=== PATIENT | male | born 1935 | race Caucasian/White ===

== ENCOUNTER 2020-03-23 07:06 | Outpatient (REF) | payer MEDICARE, OTHER, SELFPAY ==
[2020-03-23 11:10] LABS: MANUAL DIFF FLAG NO
[2020-03-23 11:26] LABS: Estimated Average Glucose 131 mg/dL; Hemoglobin A1c % 6.2 %
[2020-03-23 11:29] LABS: Alanine Aminotransferase 28 U/L (0-40); Albumin Level 4.4 g/dL (3.5-5.0); Alkaline Phosphatase 88 U/L (39-117); Anion Gap 13 (12-20); Aspartate Amino Transferase 25 U/L (5-37); Bilirubin Total 0.6 mg/dL (0.0-1.0); Blood Urea Nitrogen 14 mg/dL (9-16); Calcium 9.5 mg/dL (8.4-10.2); Carbon Dioxide 28 mmol/L (22-29); Chloride 104 mmol/L (96-108); Cholesterol 220 mg/dL; Estimated Glomerular Filt Rate 60; Glucose Fasting 133 mg/dL (60-99); HDL Cholesterol 53 mg/dL; LDL Cholesterol Calculated 145 mg/dl; Potassium 5.3 mmol/l (3.3-5.1); Sodium 140 mmol/L (135-145); Triglycerides 113 mg/dL
[2020-03-23 11:34] LABS: Basophils Absolute Auto 0.1 X10*3/uL (0.0-0.2); Eosinophils Absolute Auto 0.1 X10*3/uL (0.0-0.4); Eosinophils Percent Auto 1.5 % (0-4); Hematocrit 48.8 % (42-52); Hemoglobin 15.5 g/dl (14.0-18.0); Imm Gran Abs Auto 0.03 X10*3/uL (0.00-0.03); Imm Gran Pct Auto 0.4 % (0.0-0.4); Lymphocytes Absolute Auto 1.2 X10*3/uL (1.2-4.9); Lymphocytes Percent Auto 14.4 % (20-40); Mean Corpuscular HGB Conc 31.8 g/dl (31.0-36.0); Mean Corpuscular Hemoglobin 29.2 pg (27.0-33.0); Mean Corpuscular Volume 92.1 fL (80-98); Mean Platelet Volume 12.6 fL (9.4-12.4); Monocytes Absolute Auto 0.5 X10*3/uL (0.1-1.2); Monocytes Percent Auto 5.6 % (2-11); Neutrophils Absolute Auto 6.3 X10*3/uL (2.0-8.3); Neutrophils Percent Auto 77.1 % (45-73); Platelet Count 227 X10*3/uL (160-400); White Blood Count 8.2 X10*3/uL (4.8-10.8)
[2020-03-23 11:43] LABS: Glucose Urine UA NEG (NEG); Leukocyte Esterase Urine NEG (NEG); Nitrite Urine NEG (NEG); Urine Blood NEG (NEG); Urine Ketones NEG (NEG); Urine Protein NEG (NEG-TRACE)
[2020-03-23 11:50] LABS: TSH reflex Free T4 3.06 mIU/mL (0.32-4.0)
[2020-03-23 11:50] LABS: Appearance Urine CLEAR; Color Urine YELLOW
[2020-03-23 12:21] LABS: Creatinine Urine 95.33 mg/dL; Microalbum/Creatinine Ratio Ur 12.5 ug/mg cr
[2020-03-23 12:32] LABS: RBC Urine 0 /HPF (0); WBC Urine 0-2 /HPF (0-4)
== END 2020-03-23 07:07 | disposition home or self-care (01) ==
LOC: HO.HMGCLDS 07:06
PROVIDERS: PCP Internal Medicine; Visit Provider Internal Medicine
DX: E78.00 Pure hypercholesterolemia, unspecified (principal); E11.9 Type 2 diabetes mellitus without complications; E66.3 Overweight; I10 Essential (primary) hypertension
CPT/HCPCS: 36415; 80053; 80061; 81001; 81003; 82043; 83036; 84443; 85025

== ENCOUNTER 2020-08-10 10:25 | Outpatient (REF) | payer MEDICARE, MEDICAID, SELFPAY ==
[2020-08-10 12:05] LABS: MANUAL DIFF FLAG NO
[2020-08-10 12:13] LABS: Basophils Absolute Auto 0.1 X10*3/uL (0.0-0.2); Basophils Percent Auto 0.4 % (0-2); Eosinophils Absolute Auto 0.1 X10*3/uL (0.0-0.4); Eosinophils Percent Auto 0.9 % (0-4); Hematocrit 45.1 % (42-52); Hemoglobin 15.1 g/dl (14.0-18.0); Imm Gran Abs Auto 0.06 X10*3/uL (0.00-0.03); Imm Gran Pct Auto 0.5 % (0.0-0.4); Lymphocytes Absolute Auto 1.4 X10*3/uL (1.2-4.9); Lymphocytes Percent Auto 12.5 % (20-40); Mean Corpuscular HGB Conc 33.5 g/dl (31.0-36.0); Mean Corpuscular Hemoglobin 30.1 pg (27.0-33.0); Mean Platelet Volume 11.7 fL (9.4-12.4); Monocytes Absolute Auto 0.7 X10*3/uL (0.1-1.2); Monocytes Percent Auto 5.7 % (2-11); Neutrophils Absolute Auto 9.2 X10*3/uL (2.0-8.3); Platelet Count 265 X10*3/uL (160-400); Red Blood Count 5.01 X10*6/uL (4.60-5.80); Red Cell Distribution Width 14.6 % (11.0-16.0); White Blood Count 11.5 X10*3/uL (4.8-10.8)
[2020-08-10 12:43] LABS: Alanine Aminotransferase 16 U/L (0-40); Albumin Level 4.4 g/dL (3.5-5.0); Alkaline Phosphatase 82 U/L (39-117); Anion Gap 14 (12-20); Aspartate Amino Transferase 16 U/L (5-37); Bilirubin Total 0.8 mg/dL (0.0-1.0); Blood Urea Nitrogen 16 mg/dL (9-16); C Reactive Protein 0.56 mg/dL (< or = 0.50); Calcium 9.4 mg/dL (8.4-10.2); Carbon Dioxide 29 mmol/L (22-29); Chloride 103 mmol/L (96-108); Estimated Glomerular Filt Rate > 60; Glucose Random 107 mg/dL (60-115); Potassium 4.7 mmol/L (3.3-5.1); Sodium 141 mmol/L (135-145); Total Protein 6.9 g/dL (6.5-8.0)
[2020-08-10 13:24] LABS: Erythrocyte Sedimentation Rate 7 MM/HR (0-15)
== END 2020-08-10 10:26 | disposition home or self-care (01) ==
LOC: HO.LAB 10:25
PROVIDERS: PCP Internal Medicine; Visit Provider Student in an Organized Health Care Education/Training Program
DX: M05.9 Rheumatoid arthritis with rheumatoid factor, unspecified (principal); I10 Essential (primary) hypertension; Z87.891 Personal history of nicotine dependence; Z88.6 Allergy status to analgesic agent; Z79.82 Long term (current) use of aspirin; Z79.899 Other long term (current) drug therapy
CPT/HCPCS: 36415; 80053; 85025; 85652; 86140; 99212

== ENCOUNTER → 2020-11-12 14:08 | Outpatient (BNVA) | payer MEDICARE, MEDICAID, SELFPAY | PROVIDERS: PCP Internal Medicine; Visit Provider Student in an Organized Health Care Education/Training Program | DX: M05.9 Rheumatoid arthritis with rheumatoid factor, unspecified (principal); Z79.899 Other long term (current) drug therapy | CPT/HCPCS: 99212 ==

== ENCOUNTER 2020-11-15 09:39 | Outpatient (REF) | payer MEDICARE, MEDICAID, SELFPAY ==
[2020-11-15 11:29] LABS: MANUAL DIFF FLAG NO
[2020-11-15 11:38] LABS: Basophils Absolute Auto 0.1 X10*3/uL (0.0-0.2); Basophils Percent Auto 0.7 % (0-2); Eosinophils Absolute Auto 0.1 X10*3/uL (0.0-0.4); Eosinophils Percent Auto 1.3 % (0-4); Hematocrit 44.9 % (42-52); Hemoglobin 14.5 g/dl (14.0-18.0); Imm Gran Abs Auto 0.09 X10*3/uL (0.00-0.03); Imm Gran Pct Auto 0.8 % (0.0-0.4); Lymphocytes Absolute Auto 1.5 X10*3/uL (1.2-4.9); Lymphocytes Percent Auto 13.5 % (20-40); Mean Corpuscular HGB Conc 32.3 g/dl (31.0-36.0); Mean Corpuscular Hemoglobin 29.8 pg (27.0-33.0); Mean Corpuscular Volume 92.4 fL (80-98); Mean Platelet Volume 12.1 fL (9.4-12.4); Monocytes Absolute Auto 0.7 X10*3/uL (0.1-1.2); Monocytes Percent Auto 6.9 % (2-11); Neutrophils Absolute Auto 8.2 X10*3/uL (2.0-8.3); Neutrophils Percent Auto 76.8 % (45-73); Platelet Count 255 X10*3/uL (160-400); Red Blood Count 4.86 X10*6/uL (4.60-5.80); Red Cell Distribution Width 15.1 % (11.0-16.0); White Blood Count 10.7 X10*3/uL (4.8-10.8)
[2020-11-15 12:01] LABS: Alanine Aminotransferase 15 U/L (0-40); Albumin Level 4.2 g/dL (3.5-5.0); Alkaline Phosphatase 83 U/L (39-117); Anion Gap 13 (12-20); Aspartate Amino Transferase 16 U/L (5-37); Bilirubin Total 0.8 mg/dL (0.0-1.0); Blood Urea Nitrogen 16 mg/dL (9-16); C Reactive Protein 0.73 mg/dL (< or = 0.50); Calcium 9.5 mg/dL (8.4-10.2); Carbon Dioxide 29 mmol/L (22-29); Chloride 104 mmol/L (96-108); Estimated Glomerular Filt Rate 56; Glucose Random 188 mg/dL (60-115); Potassium 4.5 mmol/L (3.3-5.1); Sodium 141 mmol/L (135-145); Total Protein 6.7 g/dL (6.5-8.0)
[2020-11-15 12:15] LABS: Erythrocyte Sedimentation Rate 7 MM/HR (0-15)
== END 2020-11-15 09:40 | disposition home or self-care (01) ==
LOC: HO.HMGCLDS 09:39
PROVIDERS: Visit Provider Student in an Organized Health Care Education/Training Program
DX: M05.9 Rheumatoid arthritis with rheumatoid factor, unspecified (principal)
CPT/HCPCS: 36415; 80053; 85025; 85652; 86140

== ENCOUNTER 2020-12-21 07:12 | Outpatient (REF) | payer MEDICARE, MEDICAID, SELFPAY ==
[2020-12-21 11:13] LABS: MANUAL DIFF FLAG NO
[2020-12-21 11:23] LABS: Basophils Absolute Auto 0.1 X10*3/uL (0.0-0.2); Basophils Percent Auto 0.6 % (0-2); Eosinophils Absolute Auto 0.1 X10*3/uL (0.0-0.4); Eosinophils Percent Auto 1.6 % (0-4); Hematocrit 45.2 % (42-52); Hemoglobin 14.7 g/dl (14.0-18.0); Imm Gran Abs Auto 0.04 X10*3/uL (0.00-0.03); Imm Gran Pct Auto 0.5 % (0.0-0.4); Lymphocytes Absolute Auto 1.1 X10*3/uL (1.2-4.9); Lymphocytes Percent Auto 12.7 % (20-40); Mean Corpuscular HGB Conc 32.5 g/dl (31.0-36.0); Mean Corpuscular Volume 92.2 fL (80-98); Mean Platelet Volume 11.6 fL (9.4-12.4); Monocytes Absolute Auto 0.6 X10*3/uL (0.1-1.2); Monocytes Percent Auto 6.4 % (2-11); Neutrophils Absolute Auto 6.8 X10*3/uL (2.0-8.3); Neutrophils Percent Auto 78.2 % (45-73); Platelet Count 232 X10*3/uL (160-400); Red Cell Distribution Width 15.1 % (11.0-16.0); White Blood Count 8.6 X10*3/uL (4.8-10.8)
[2020-12-21 11:42] LABS: Estimated Average Glucose 137 mg/dL; Hemoglobin A1c % 6.4 %
[2020-12-21 11:59] LABS: Alanine Aminotransferase 20 U/L (0-40); Albumin Level 4.3 g/dL (3.5-5.0); Alkaline Phosphatase 87 U/L (39-117); Anion Gap 15 (12-20); Aspartate Amino Transferase 21 U/L (5-37); Bilirubin Total 0.7 mg/dL (0.0-1.0); Blood Urea Nitrogen 12 mg/dL (9-16); Calcium 9.5 mg/dL (8.4-10.2); Carbon Dioxide 26 mmol/L (22-29); Chloride 104 mmol/L (96-108); Cholesterol 172 mg/dL; Estimated Glomerular Filt Rate 58; Glucose Fasting 139 mg/dL (60-99); HDL Cholesterol 46 mg/dL; LDL Cholesterol Calculated 104 mg/dl; Potassium 5.2 mmol/L (3.3-5.1); Sodium 140 mmol/L (135-145); Triglycerides 111 mg/dL
[2020-12-21 12:01] LABS: Glucose Urine UA 100 MG/DL (NEG); Leukocyte Esterase Urine NEG (NEG); Nitrite Urine NEG (NEG); PH 6.5 (5.0-8.0); Urine Blood NEG (NEG); Urine Ketones NEG (NEG); Urine Protein NEG (NEG-TRACE)
[2020-12-21 12:02] LABS: Creatinine Urine 155.15 mg/dL; Microalbum/Creatinine Ratio Ur 5.8 ug/mg cr
[2020-12-21 12:05] LABS: TSH reflex Free T4 1.44 uIU/mL (0.32-4.0); Vitamin D 25-OH Total 34.6 ng/mL (>30)
[2020-12-21 12:06] LABS: Appearance Urine CLEAR; Color Urine YELLOW
== END 2020-12-21 07:13 | disposition home or self-care (01) ==
LOC: HO.HMGCLDS 07:12
PROVIDERS: PCP Internal Medicine; Visit Provider Internal Medicine
DX: E78.00 Pure hypercholesterolemia, unspecified (principal); I10 Essential (primary) hypertension; M05.9 Rheumatoid arthritis with rheumatoid factor, unspecified; E11.9 Type 2 diabetes mellitus without complications; E55.9 Vitamin D deficiency, unspecified
CPT/HCPCS: 36415; 80053; 80061; 81003; 82043; 82306; 83036; 84443; 85025

== ENCOUNTER 2021-02-07 14:05 | Outpatient (AMB) | payer MEDICARE, MEDICAID, SELFPAY ==
--- NOTE | 2021-02-07 15:02 | A.OFFVIS_ITS ---
Intake Vital Signs 02/07/21 15:03 Height 5 ft 10 in Weight 205 lb BMI 29.4 BP 160/90 H Pulse 98 Pulse Source Pulse Oximeter Temp 96.8 F Pulse Oximetry (%) 96 Oxygen Delivery Method Room Air Intake Visit Reasons: YUSEF G0439 02/04/21 Polisher Dial Required: No Accompanied by: Self / Same As Patient Allergies hydrocodone [From VICODIN] Allergy (Intermediate, Verified 11/08/23 11:16) Vomiting Hydrocodone-Acetaminophen Allergy (Intermediate, Uncoded 11/08/23 11:16) vomiting, dizziness Medication List - Last Reconciled 02/07/21 by Andry Quintero MD aspirin 81 mg PO DAILY blood sugar diagnostic (FreeStyle Lite Strips) 1 strip miscellaneous DAILY cholecalciferol (vitamin D3) 25 mcg PO DAILY folic acid 1 mg PO DAILY lancets (TRUEplus Lancets) 33 gauge miscellaneous DAILY lisinopril 5 mg PO DAILY 90 days lorazepam 0.5 mg PO DAILY 30 days metformin 500 mg PO BID methotrexate sodium 6 tabs PO every week; omeprazole 20 mg PO DAILY simvastatin 20 mg PO BEDTIME HPI [facility] G0439 02/04/21 HPI Details Patient comes in today for his Annual Medicare Wellness Exam AND follow up visit States that he feels okay He denies any headaches or dizziness Denies any chest pains, no SOB No nausea/vomiting, no abdominal pain No change in bowel habits noted Had some follow up labs done last month - to discuss his results IPPE/AWV: c/o of Annual Wellness Visit, initial visit. Medical / Social History Reviewed Past Medical History Yes . [place] of Care / Care Team list updated Yes . Surgical/Hospitalization History Yes . Current Medications (including OTC and supplements) Yes . Family History Yes . Tobacco Control form Yes . AUDIT-C (Alcohol use) form Yes . Illicit drug use in Social History Yes . Current diagnosis of depression? No Appropriate PHQ2/PHQ9 completed Yes . Data entered by [facility] and reviewed by provider Home Safety Throw rugs? No Grab bars? No Raised toilet seats? No Working smoke detectors? Yes Working carbon monoxide detectors? Yes Data entered by [facility] Inter[facility] and reviewed by provider Activities of Daily Living (ADLs) Difficulty bathing or showering? No Difficulty dressing? No Difficulty using the toilet? No Difficulty getting in and out of bed? No Difficulty walking? No Receives help from another person with any of the above tasks? No Instrumental Activities of Daily Living (IADLs) Uses the telephone without help Gets to places out of walking distance without help Goes shopping for groceries without help Prepares own meals without help Does own minor home maintenance without help Does own laundry without help Does own housework without help Manages own money without help Currently takes medications? Yes Takes medication without help End-of-Life Planning Discussed advance directive Yes Advance directive on file Discussed wishes expressed in advance directive agreed to following patient's wishes Fall Risk: Fall History Have you had any falls with injury in the past year? No . Have you had two or more falls in the past year? No . Fall Risk Assessment: No falls in the past year . HRA filled out by the patient, reviewed by Provider and scanned. 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 Seropositive rheumatoid arthritis Surgical History History of hernia surgery Family History Father Diabetes Mother CVD (cardiovascular disease) Social History Housing: House Alcohol intake: never Patient Tobacco Use Status: Former Tobacco user Tobacco use type: Cigarette Cigarettes Per Day: 20 Years Smoked: 15 e-Cigarette/Vaping Use: Never Used Advance Directives Date on File: 10/13/22 service: No Current occupational status: unemployed Current occupational exposures/hazards: No Cognitive needs: No Hearing needs: No Vision needs: No Questionnaire Medicare Wellness Checkup What is your age?: 81 or older What gender do you identify with?: male During the past 4 weeks, how much have you been bothered by emotional problems such as feeling anxious, depressed, irritable, sad or downhearted, and blue?: not at all During the past 4 weeks, has your physical & emotional health limited your social activities with family, friends, neighbors, or groups?: not at all During the past 4 weeks, how much bodily pain have you generally had?: no pain During the past 4 weeks, was someone available to help you if you needed & wanted help?: no, not at all During the past 4 weeks, what was the hardest physical activity you could do for at least 2 minutes?: very light Can you get to places out of walking distance without help? (For eg., can you travel alone on buses, taxis or drive your car?): No Can you go shopping for groceries or clothes without someone's help?: No Can you prepare your own meals?: Yes Can you do your housework without help?: Yes Because of any health problems, do you need the help of another person with your personal care needs such as eating, bathing, dressing or getting around the house?: Yes Can you handle your own money without help?: Yes During the past 4 weeks, how would you rate your health in general?: good During the past 4 weeks how have things been going for you?: good & bad parts about equal Are you having difficulties driving your car?: no Do you always fasten your seat belt when you are in a car?: yes, usually During past 4 weeks, have you been bothered by the following: never: Falling or dizzy when standing up, Sexual problems?, Trouble eating well?, Teeth or denture problems?, Problems using the telephone? and Tiredness or fatigue? Have you fallen 2 or more times in the past year?: No Are you afraid of falling?: No Are you a smoker?: no Do you exercise for about 20 minutes 3 or more times a week?: no, I usually do not exercise this much Have you been given information to help with the following?: no: Hazards in your house that might hurt you? and no: Keeping track of your medications? How often do you have trouble taking medicines the way you have been told to take them?: I always take medicine as prescribed What is your race?: White Mini Mental State Exam (MMSE) Orientation What is the (year) (season) (date) (day) (month)?: year, season, date, day and month Where are we (state) (county) (town or city) (hospital) (floor)?: state, county, town or city, hospital/clinic and floor Score Score: 10 Activity of Daily Living Bathing - sponge bath, tub bath or shower: receives no assistance (gets in/out by self, if usual bathing means Dressing - getting clothes from closets & drawers, including inner/outer garments & fasteners.: gets clothes & gets completely dressed without help Toileting - going to the 'toilet room' for urine/bowel elimination & cleaning self/arranging clothes: goes to toilet room, cleans self, arranges clothes without help Transfer: moves in & out of bed and chair without help (may use support object) Continence: controls urination/bowel movements completely by self Feeding: feeds self without help Total Score: 0 Information obtained from: patient Using telephone: independent Traveling: independent Shopping: independent Preparing meals: independent Housework: independent Taking medicine: independent Managing money: independent PHQ-9 (HOL/HEY) Over the last 2 weeks, how often have you been bothered by any of the following problems? 1. Little interest or pleasure in doing things: not at all 2. Feeling down, depressed, or hopeless: not at all 3. Trouble falling or staying asleep, or sleeping too much: not at all 4. Feeling tired or having little energy: not at all 5. Poor appetite or overeating: not at all 6. Feeling bad about yourself - or that you are a failure or have let yourself or your family down: not at all 7. Trouble concentrating on things, such as reading the newspaper or watching television: not at all 8. Moving or speaking so slowly that other people could have noticed. Or the opposite - being so fidgety or restless that you have been moving around a lot more than usual: not at all 9. Thoughts that you would be better off or of hurting yourself in some way: not at all Total score: 0 Depression Screening Interpretation: Negative [id number] - PHQ-9 Billing: Yes Source: Developed by Daxa SmithW. Rivera, Tyree Silva and colleagues, with an educational mary from [employer]. Thrive Questionnaire Date Thrive assessed: 02/07/21 I am a: Patient What is your living situation today?: I have a steady place to live Within the past 12 months, did the food you bought not last and you didn't have the money to get more?: Never true Within the past 12 months, did you worry whether your food would run out before you got money to buy more?: Never true Do you have trouble paying for medicines?: No Do you have trouble getting transportation to medical appointments?: No Do you have trouble paying your heating and electricity bill?: No Do you have trouble taking care of your child, family member or friend?: No Do you have trouble with day-to-day activities such as bathing, preparing meals, shopping, managing finances, etc.?: No Are you currently unemployed and looking for a job?: No Are you interested in more education?: No Currently or been in a relationship where the following occur: no concerns reported AUDIT C Alcohol Use Questionnaire (AUDIT-C) 1. How often do you have a drink containing alcohol?: Never 3. How often do you have six or more drinks on one occasion?: Never Total Score: 0 Score Reviewed/Action Taken: Yes PAYTON-7 AMB Questionnaire PAYTON-7 Date PAYTON - 7 assessed: 02/07/21 Feeling nervous, anxious, or on edge: 0 = Not at all Not being able to stop or control worryin = Not at all Worrying too much about different things: 0 = Not at all Trouble relaxin = Not at all Being so restless that it is hard to sit still: 0 = Not at all Becoming easily annoyed or irritable: 0 = Not at all Feeling afraid as if something awful might happen: 0 = Not at all Total PAYTON-7 score (0-4 normal; 5-9 mild; 10-14 moderate; 15-21 severe): 0 Source: Developed by Drs. Jerry Sheikh, Daxa Stafford, Tyree Silva and colleagues, with an educational mary from [employer]. Review of Systems Const Denies chills, Reports fatigue, Denies fever(s) and Denies headache(s) ENT Denies dysphagia, Denies otalgia, Denies headache(s), Denies neck pain, Denies odynophagia, Denies sinus pain and Denies sore throat Card Denies chest pain, Denies palpitations and Denies dyspnea Resp Denies cough and Denies dyspnea GI Denies abdominal pain, Denies constipation, Denies dysphagia, Denies heartburn, Denies diarrhea, Denies nausea, Denies odynophagia and Denies vomiting Denies dysuria, Denies nocturia and Denies urinary frequency Musc Denies neck pain Neuro Denies headache(s) Endo Reports fatigue and Denies palpitations Physical Exam Vital Signs: Last Vital Signs Temp 96.8 F 02/07/21 15:03 Pulse 98 02/07/21 15:03 BP 160/90 H 02/07/21 15:03 Pulse Ox 96 02/07/21 15:03 Oxygen Delivery Method Room Air 02/07/21 15:03 BMI result Body Mass Index 29.4 IPPE/AWV: Balance [place]berg Yes . Tandem walk Yes . Walk and Turn Yes . Rise from sit to stand Yes . Vision Corrective lens Yes Vision screen fail Hearing Whisper test fail . Urinary incont. no. EKG Not clinically necessary. Const General: no acute distress and alert Orientation/consciousness: patient oriented x3 HENMT Ears: TM's normal bilaterally and EAC's normal Throat: Yes posterior oropharynx normal and Yes tonsils normal (no TP congestion noted) Neck Neck: Yes no lymphadenopathy and Yes supple Thyroid: Thyroid normal Resp Auscultation: clear to auscultation bilaterally, no rales and no wheezes Cardio Rate: regular rate Rhythm: regular rhythm Heart sounds: no murmurs GI Palpation (GI): Soft to palpation and nontender Auscultation: normal bowel sounds General: Yes no CVA tenderness Back/Spine/Pelvis Back: no CVA tenderness Thoracic/Lumbar Spine: No lumbar spinal tenderness Skin Rashes: no rashes Neuro General: patient oriented x3 Cognition (Neuro): normal cognition Extrem General: Yes no clubbing, cyanosis or edema Psych Mental Status: mental status grossly normal Thought process: Normal thought process present Results Reviewed Results Reviewed: Laboratory Tests 12/21/20 12/21/20 12/21/20 07:26 07:26 07:26 WBC 8.6 Hgb 14.7 Hct 45.2 Plt Count 232 Sodium 140 Potassium 5.2 H Creatinine 1.19 Estimated GFR 58 Fasting Glucose 139 H Hemoglobin A1c % 6.4 Calcium 9.5 AST 21 ALT 20 Triglycerides 111 Cholesterol 172 D LDL Cholesterol, Calc 104 HDL Cholesterol 46 25-OH Vitamin D Total 34.6 TSH 1.44 Ur Specific [place] Urine Protein Urine Glucose (UA) Urine Blood 12/21/20 07:30 WBC Hgb Hct Plt Count Sodium Potassium Creatinine Estimated GFR Fasting Glucose Hemoglobin A1c % Calcium AST ALT Triglycerides Cholesterol LDL Cholesterol, Calc HDL Cholesterol 25-OH Vitamin D Total TSH Ur Specific [place] 1.020 Urine Protein NEG Urine Glucose (UA) 100 H Urine Blood NEG Assessment & Plan Assessment & Plan (1) Medicare annual wellness visit, subsequent: Code(s): Z00.00 - Encounter for general adult medical examination without abnormal findings Plan: HRA form discussed and completed with patient - form will be scanned into patient's chart (2) Benign essential hypertension: Code(s): I10 - Essential (primary) hypertension Plan: Reinforced low sodium diet - goal is systolic BP of at least 140 to 150 mm or less Continue Lisinopril 5 mg QD (3) Diabetes mellitus: Code(s): E11.9 - Type 2 diabetes mellitus without complications Qualifiers: Diabetes mellitus complication status: without complication 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 use: without termite exterminator helper use Diabetes mellitus type: type 2 Qualified Code(s): E11.9 - Type 2 diabetes mellitus without complications Plan: His HgbA1c was at 6.4% on his labs done last month - goal is ideally <6.5% Reinforced diabetic diet Continue Metformin 500 mg BID (4) Pure hypercholesterolemia: Code(s): E78.00 - Pure hypercholesterolemia, unspecified Plan: Results of his labs done last month reviewed and discussed with patient Reinforced low cholesterol diet Continue Simvastatin 20 mg QD Will recheck his labs in 2 to 3 months for follow up (5) Seropositive rheumatoid arthritis: Code(s): M05.9 - Rheumatoid arthritis with rheumatoid factor, unspecified Plan: Continue Methotrexate 2.5 mg 4 tablets once a week and Folic Acid 1 mg QD Follow up with [facility] [place] [facility] as scheduled (6) Vitamin D deficiency: Code(s): E55.9 - Vitamin D deficiency, unspecified Plan: Continue Vitamin D3 1000 units QD (7) GERD without esophagitis: Code(s): K21.9 - Gastro-esophageal reflux disease without esophagitis Plan: Dietary restrictions reinforced Continue Omeprazole 20 mg QD (8) Anxiety: Code(s): F41.9 - Anxiety disorder, unspecified Plan: Continue Lorazepam 0.5 mg Q HS PRN (9) Overweight (BMI 25.0-29.9): Code(s): E66.3 - Overweight Plan: Reinforced diet/exercise as tolerated/lose weight Plan Follow up in 3 months Orders: Orders Lipid Panel 3 Months E78.00 - Pure hypercholesterolemia, unspecified TSH reflex Free T4 3 Months E78.00 - Pure hypercholesterolemia, unspecified Hemoglobin A1c 3 Months E11.9 - Type 2 diabetes mellitus without complications Complete Blood Count Auto Diff 3 Months I10 - Essential (primary) hypertension Comprehensive [place]. Panel Fast 3 Months E78.00 - Pure hypercholesterolemia, unspecified Quality Reporting (2019) Depression/Bipolar (159/160/161/177) PHQ-9: Total score: 0 Coding Level of Care Code Medicare Subsequent (G0439) Est Pt Level 4 (74106) Diagnoses Medicare annual wellness visit, subsequent Z00.00 Benign essential hypertension I10 Type 2 diabetes mellitus without complication, without long-term current use of insulin E11.9 Diabetes mellitus complication status: without complication 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 use: without halfway use Diabetes mellitus type: type 2 Pure hypercholesterolemia E78.00 Seropositive rheumatoid arthritis M05.9 Vitamin D deficiency E55.9 GERD without esophagitis K21.9 Anxiety F41.9 Overweight (BMI 25.0-29.9) E66.3 Additional Codes PHQ-9 - 63518 - PHQ-9 Billing: Yes ([id number])
[2021-02-07 15:03] VITALS: BP 160/90; PULSE 98; TEMP 36; O2SAT 96; BMI 29.4
== END 2021-02-07 15:49 ==
LOC: HO.HMGH 14:05
PROVIDERS: PCP Internal Medicine; Visit Provider Internal Medicine
DX: Z00.00 Encounter for general adult medical examination without abnormal findings (principal); I10 Essential (primary) hypertension; E11.9 Type 2 diabetes mellitus without complications; E78.00 Pure hypercholesterolemia, unspecified; M05.9 Rheumatoid arthritis with rheumatoid factor, unspecified; E55.9 Vitamin D deficiency, unspecified; K21.9 Gastro-esophageal reflux disease without esophagitis; F41.9 Anxiety disorder, unspecified; E66.3 Overweight
CPT/HCPCS: 99499

== ENCOUNTER 2021-03-30 06:59 | Outpatient (REF) | payer MEDICARE, OTHER, SELFPAY ==
[2021-03-30 11:37] LABS: MANUAL DIFF FLAG NO
[2021-03-30 11:52] LABS: Basophils Absolute Auto 0.1 X10*3/uL (0.0-0.2); Basophils Percent Auto 0.7 % (0-2); Eosinophils Absolute Auto 0.1 X10*3/uL (0.0-0.4); Eosinophils Percent Auto 1.9 % (0-4); Hematocrit 47.6 % (42-52); Hemoglobin 15.3 g/dl (14.0-18.0); Imm Gran Abs Auto 0.02 X10*3/uL (0.00-0.03); Imm Gran Pct Auto 0.3 % (0.0-0.4); Lymphocytes Absolute Auto 1.2 X10*3/uL (1.2-4.9); Lymphocytes Percent Auto 15.6 % (20-40); Mean Corpuscular HGB Conc 32.1 g/dl (31.0-36.0); Mean Corpuscular Hemoglobin 29.8 pg (27.0-33.0); Mean Corpuscular Volume 92.6 fL (80-98); Mean Platelet Volume 12.3 fL (9.4-12.4); Monocytes Absolute Auto 0.2 X10*3/uL (0.1-1.2); Monocytes Percent Auto 2.7 % (2-11); Neutrophils Absolute Auto 5.8 X10*3/uL (2.0-8.3); Neutrophils Percent Auto 78.8 % (45-73); Platelet Count 265 X10*3/uL (160-400); Red Blood Count 5.14 X10*6/uL (4.60-5.80); White Blood Count 7.4 X10*3/uL (4.8-10.8)
[2021-03-30 12:05] LABS: Alanine Aminotransferase 22 U/L (0-40); Albumin Level 4.3 g/dL (3.5-5.0); Alkaline Phosphatase 81 U/L (39-117); Anion Gap 13 (12-20); Aspartate Amino Transferase 22 U/L (5-37); Bilirubin Total 1.2 mg/dL (0.0-1.0); Blood Urea Nitrogen 12 mg/dL (9-16); Calcium 9.5 mg/dL (8.4-10.2); Carbon Dioxide 27 mmol/L (22-29); Chloride 105 mmol/L (96-108); Cholesterol 197 mg/dL; Estimated Glomerular Filt Rate > 60; Glucose Fasting 127 mg/dL (60-99); HDL Cholesterol 42 mg/dL; LDL Cholesterol Calculated 133 mg/dl; Potassium 4.3 mmol/L (3.3-5.1); Sodium 141 mmol/L (135-145); Total Protein 6.9 g/dL (6.5-8.0); Triglycerides 110 mg/dL
[2021-03-30 12:15] LABS: TSH reflex Free T4 3.46 uIU/mL (0.32-4.0)
[2021-03-30 12:28] LABS: Estimated Average Glucose 123 mg/dL; Hemoglobin A1c % 5.9 %
== END 2021-03-30 07:00 | disposition home or self-care (01) ==
LOC: HO.HMGCLDS 06:59
PROVIDERS: PCP Internal Medicine; Visit Provider Internal Medicine
DX: E78.00 Pure hypercholesterolemia, unspecified (principal); E11.9 Type 2 diabetes mellitus without complications; I10 Essential (primary) hypertension
CPT/HCPCS: 36415; 80053; 80061; 83036; 84443; 85025

== ENCOUNTER → 2021-06-29 12:19 | Outpatient (BNVA) | payer MEDICARE, OTHER, SELFPAY | PROVIDERS: PCP Internal Medicine; Visit Provider Nurse Practitioner Family | DX: M05.9 Rheumatoid arthritis with rheumatoid factor, unspecified (principal); Z79.899 Other long term (current) drug therapy | CPT/HCPCS: 99212 ==

== ENCOUNTER 2021-06-30 07:49 | Outpatient (REF) | payer MEDICARE, OTHER, SELFPAY ==
[2021-06-30 11:18] LABS: MANUAL DIFF FLAG NO
[2021-06-30 11:35] LABS: Basophils Absolute Auto 0.1 X10*3/uL (0.0-0.2); Basophils Percent Auto 0.5 % (0-2); Eosinophils Absolute Auto 0.2 X10*3/uL (0.0-0.4); Eosinophils Percent Auto 1.9 % (0-4); Hematocrit 46.1 % (42.0-52.0); Hemoglobin 14.9 g/dl (14.0-18.0); Imm Gran Abs Auto 0.03 X10*3/uL (0.00-0.03); Imm Gran Pct Auto 0.3 % (0.0-0.4); Lymphocytes Absolute Auto 1.4 X10*3/uL (1.2-4.9); Lymphocytes Percent Auto 14.5 % (20-40); Mean Corpuscular HGB Conc 32.3 g/dl (31.0-36.0); Mean Corpuscular Volume 92.8 fL (80.0-98.0); Mean Platelet Volume 11.9 fL (9.4-12.4); Monocytes Absolute Auto 0.4 X10*3/uL (0.1-1.2); Neutrophils Absolute Auto 7.5 x10*3/uL (2.0-8.3); Neutrophils Percent Auto 78.8 % (45-73); Platelet Count 245 X10*3/uL (160-400); Red Blood Count 4.97 X10*6/uL (4.60-5.80); Red Cell Distribution Width 14.8 % (11.0-16.0); White Blood Count 9.5 X10*3/uL (4.8-10.8)
[2021-06-30 11:53] LABS: Alanine Aminotransferase 26 U/L (0-40); Alkaline Phosphatase 89 U/L (39-117); Anion Gap 13 (12-20); Aspartate Amino Transferase 26 U/L (5-37); Bilirubin Total 1.4 mg/dL (0.0-1.0); Blood Urea Nitrogen 16 mg/dL (9-16); C Reactive Protein 1.44 mg/dL (< or = 0.50); Calcium 9.4 mg/dL (8.4-10.2); Carbon Dioxide 30 mmol/L (22-29); Chloride 103 mmol/L (96-108); Estimated Glomerular Filt Rate > 60; Glucose Random 102 mg/dL (60-115); Potassium 4.3 mmol/L (3.3-5.1); Sodium 142 mmol/L (135-145); Total Protein 6.8 g/dL (6.5-8.0)
[2021-06-30 12:16] LABS: Erythrocyte Sedimentation Rate 10 MM/HR (0-15)
== END 2021-06-30 07:50 | disposition home or self-care (01) ==
LOC: HO.HMGCLDS 07:49
PROVIDERS: Visit Provider Nurse Practitioner Family
DX: M05.9 Rheumatoid arthritis with rheumatoid factor, unspecified (principal)
CPT/HCPCS: 36415; 80053; 85025; 85652; 86140

== ENCOUNTER 2021-11-04 11:17 | Outpatient (REF) | payer MEDICARE, OTHER, SELFPAY ==
[2021-11-04 12:13] LABS: MANUAL DIFF FLAG NO
[2021-11-04 12:35] LABS: Basophils Absolute Auto 0.1 X10*3/uL (0.0-0.2); Basophils Percent Auto 0.9 % (0-2); Eosinophils Absolute Auto 0.2 X10*3/uL (0.0-0.4); Eosinophils Percent Auto 1.7 % (0-4); Hematocrit 48.2 % (42.0-52.0); Hemoglobin 15.5 g/dl (14.0-18.0); Imm Gran Abs Auto 0.06 X10*3/uL (0.00-0.03); Imm Gran Pct Auto 0.6 % (0.0-0.4); Lymphocytes Absolute Auto 1.4 X10*3/uL (1.2-4.9); Lymphocytes Percent Auto 13.4 % (20-40); Mean Corpuscular HGB Conc 32.2 g/dl (31.0-36.0); Mean Corpuscular Hemoglobin 29.4 pg (27.0-33.0); Mean Corpuscular Volume 91.3 fL (80.0-98.0); Mean Platelet Volume 11.5 fL (9.4-12.4); Monocytes Absolute Auto 0.6 X10*3/uL (0.1-1.2); Monocytes Percent Auto 5.5 % (2-11); Neutrophils Absolute Auto 8.4 x10*3/uL (2.0-8.3); Neutrophils Percent Auto 77.9 % (45-73); Platelet Count 302 X10*3/uL (160-400); Red Blood Count 5.28 X10*6/uL (4.60-5.80); Red Cell Distribution Width 15.3 % (11.0-16.0); White Blood Count 10.8 X10*3/uL (4.8-10.8)
[2021-11-04 13:11] LABS: Alanine Aminotransferase 25 U/L (0-40); Albumin Level 4.3 g/dL (3.5-5.0); Alkaline Phosphatase 97 U/L (39-117); Anion Gap 12 (12-20); Aspartate Amino Transferase 22 U/L (5-37); Bilirubin Total 0.6 mg/dL (0.0-1.0); Blood Urea Nitrogen 12 mg/dL (9-16); C Reactive Protein 0.67 mg/dL (< or = 0.50); Calcium 10.3 mg/dL (8.4-10.2); Carbon Dioxide 30 mmol/L (22-29); Chloride 102 mmol/L (96-108); Estimated Glomerular Filt Rate 60; Glucose Random 101 mg/dL (60-115); Sodium 139 mmol/L (135-145); Total Protein 7.2 g/dL (6.5-8.0)
[2021-11-04 13:47] LABS: Erythrocyte Sedimentation Rate 10 MM/HR (0-15)
== END 2021-11-04 11:18 | disposition home or self-care (01) ==
LOC: HO.LAB 11:17
PROVIDERS: PCP Internal Medicine; Visit Provider Nurse Practitioner Family
DX: M05.9 Rheumatoid arthritis with rheumatoid factor, unspecified (principal); Z79.899 Other long term (current) drug therapy
CPT/HCPCS: 36415; 80053; 85025; 85652; 86140; 99212

== ENCOUNTER 2021-11-15 13:08 | Outpatient (REF) | payer MEDICARE, OTHER, SELFPAY ==
[2021-11-15 14:16] LABS: Calcium 9.1 mg/dL (8.4-10.2)
[2021-11-16 15:35] LABS: Calcium (PTHI) 9.2 mg/dL (8.6-10.3); PTHI 138 pg/mL (16-77)
== END 2021-11-15 13:09 | disposition home or self-care (01) ==
LOC: HO.LAB 13:08
PROVIDERS: Visit Provider Nurse Practitioner Family
DX: E83.52 Hypercalcemia (principal)
CPT/HCPCS: 36415; 82310; 83970

== ENCOUNTER 2022-01-24 10:27 | Outpatient (REF) | payer MEDICARE, OTHER, SELFPAY ==
[2022-01-24 13:16] LABS: MANUAL DIFF FLAG NO
[2022-01-24 13:33] LABS: Basophils Absolute Auto 0.1 X10*3/uL (0.0-0.2); Basophils Percent Auto 0.8 % (0-2); Eosinophils Absolute Auto 0.1 X10*3/uL (0.0-0.4); Eosinophils Percent Auto 0.9 % (0-4); Hematocrit 45.1 % (42.0-52.0); Hemoglobin 15.5 g/dl (14.0-18.0); Imm Gran Abs Auto 0.03 X10*3/uL (0.00-0.03); Imm Gran Pct Auto 0.3 % (0.0-0.4); Lymphocytes Percent Auto 10.5 % (20-40); Mean Corpuscular HGB Conc 34.4 g/dl (31.0-36.0); Mean Corpuscular Hemoglobin 31.2 pg (27.0-33.0); Mean Corpuscular Volume 90.7 fL (80.0-98.0); Mean Platelet Volume 12.5 fL (9.4-12.4); Monocytes Absolute Auto 0.5 X10*3/uL (0.1-1.2); Monocytes Percent Auto 5.9 % (2-11); Neutrophils Absolute Auto 7.5 x10*3/uL (2.0-8.3); Neutrophils Percent Auto 81.6 % (45-73); Platelet Count 251 X10*3/uL (160-400); Red Blood Count 4.97 X10*6/uL (4.60-5.80); Red Cell Distribution Width 14.9 % (11.0-16.0); White Blood Count 9.2 X10*3/uL (4.8-10.8)
[2022-01-24 13:35] LABS: Alanine Aminotransferase 15 U/L (0-40); Albumin Level 4.1 g/dL (3.5-5.0); Alkaline Phosphatase 93 U/L (39-117); Anion Gap 15 (12-20); Aspartate Amino Transferase 19 U/L (5-37); Bilirubin Total 0.5 mg/dL (0.0-1.0); Blood Urea Nitrogen 10 mg/dL (9-16); C Reactive Protein 1.34 mg/dL (< or = 0.50); Calcium 9.1 mg/dL (8.4-10.2); Carbon Dioxide 28 mmol/L (22-29); Chloride 102 mmol/L (96-108); Estimated Glomerular Filt Rate > 60; Glucose Random 147 mg/dL (60-115); Potassium 3.7 mmol/L (3.3-5.1); Sodium 141 mmol/L (135-145); Total Protein 6.8 g/dL (6.5-8.0)
[2022-01-24 13:57] LABS: Vitamin D 25-OH Total 27.5 ng/mL (>30)
[2022-01-24 14:22] LABS: Erythrocyte Sedimentation Rate 10 MM/HR (0-15)
== END 2022-01-24 10:28 | disposition home or self-care (01) ==
LOC: HO.10HDL 10:27
PROVIDERS: Visit Provider Nurse Practitioner Family
DX: M05.9 Rheumatoid arthritis with rheumatoid factor, unspecified (principal); E55.9 Vitamin D deficiency, unspecified; Z79.899 Other long term (current) drug therapy
CPT/HCPCS: 36415; 80053; 82306; 85025; 85652; 86140; 99212

== ENCOUNTER → 2022-06-22 13:06 | Outpatient (BNVA) | payer MEDICARE, OTHER, SELFPAY | PROVIDERS: PCP Internal Medicine; Visit Provider Nurse Practitioner Family | DX: N40.1 Benign prostatic hyperplasia with lower urinary tract symptoms (principal); R35.0 Frequency of micturition; R35.1 Nocturia | CPT/HCPCS: 51798; 99202 ==

== ENCOUNTER 2022-09-14 07:51 | Emergency (ER) | payer MEDICARE, OTHER, SELFPAY ==
--- NOTE | ~2022-09-14 | CT_ITS ---
EXAMINATION: CT HEAD W/O IV CONTRAST CT CERVICAL SPINE W/O IV CONTRAST CLINICAL INFORMATION: Trauma. COMPARISON: Head CT from 05/11/2017 TECHNIQUE: Head - Contiguous axial imaging of the head was performed from the skull base to the vertex without the administration of intravenous contrast, and axial images are reconstructed at 2 mm and 5 mm slice thickness. Cervical spine - A volumetric, helical CT acquisition of the cervical spine was obtained without contrast; in addition to the standard set of axial images, multiplanar reformatted images were provided in the coronal and sagittal imaging planes. This CT examination was performed using dose optimization techniques as appropriate, variously including the following: *Automated exposure control *Adjustment of mA and/or kV according to patient size (this includes techniques or standardized protocols for targeted exams where dose is matched to indication/reason for exam; i.e. extremities or head) *Use of iterative reconstruction technique DLP: 1040 mGy-cm (total) FINDINGS: HEAD: No intracranial hemorrhage, extra-axial surface collection, focal mass effect or midline shift. Chronic parenchymal volume loss with commensurate prominence of ventricles and sulci; no hydrocephalus. Chronic hypoattenuation within supratentorial matter is compatible with sequela of microangiopathy. The castillo-white matter differentiation is maintained. There is atherosclerotic calcification of cavernous carotid arteries. Again noted is the drew hole of the left parietal bone near the vertex. The visualized paranasal sinuses are clear. There is a left mastoid effusion. The temporomandibular joints are intact. The orbits and globes are unremarkable. There are dental caries, and periapical lucency is seen around roots of the left maxillary central incisor and right lateral incisor. CERVICAL SPINE: The craniocervical junction is normal. The occipital condyles, dens and atlantodental articulation are intact. The vertebral body heights are maintained. No fractures in the anterior or posterior elements. No prevertebral soft tissue edema. Multilevel facet osteoarthritis and multilevel mild discovertebral degenerative changes are associated with a stairstep pattern of minimal degenerative anterolisthesis at all levels (from C2-C3 to C6-C7. There are small posterior disc-osteophyte complexes at multiple levels. No hematoma in the visualized neck. A focus of nuchal ligament ossification projects posterior to C4. There is mucus along the anterior tracheal wall. A hypodense nodule within the right thyroid lobe is approximately 2 cm in AP dimension (1.7 cm on 09/03/2014). Note that in patients with significant comorbidities or limited life expectancy, thyroid ultrasound follow-up would not be recommended (unless clinically warranted). Centrilobular and paraseptal emphysema at the visualized upper lobes. No pneumothorax. CT/CT cervical spine wo IV con IMPRESSION: * No acute intracranial pathology compared to the head CT from 05/11/2017. * Chronic parenchymal volume loss and chronic small vessel ischemic changes of supratentorial white matter. * No acute osseous injury within the degenerated cervical spine. * Incidental noted is periodontal disease and dental caries of the maxilla.
--- NOTE | ~2022-09-14 | XR_ITS ---
EXAMINATION: XR SHOULDER, LEFT CLINICAL INFORMATION: Trauma. COMPARISON: None available. TECHNIQUE: Three views of the left shoulder. FINDINGS: The bones and soft tissues are normal. No fracture. Glenohumeral and acromioclavicular alignment is anatomic with normal joint space. No abnormal soft tissue calcifications. XR/XR shoulder LT min 2V IMPRESSION: Unremarkable left shoulder.
[2022-09-14 07:59] VITALS: BP 138/84; PULSE 94; RESP 18; TEMP 36.6; O2SAT 95; BMI 29.2
--- NOTE | 2022-09-14 08:04 | ED.GENADULT ---
HPI - General Adult General Chief complaint: Fall Stated complaint: NECK PAIN/RT ARM PAIN S/P FALL 1 WEEK AGO Time Seen by Provider: 09/14/22 08:00 Source: patient Mode of arrival: EMS Limitations: no limitations History of Present Illness HPI narrative: pt presented c/o neck pain,states fell 1 Week ago,fall was 1 Week ago on the ice Onset (ago): day(s) (7) Location: neck Radiation: non-radiation Severity: moderate Quality: burning Pain Consistency: constant Relieving factors: none Exacerbating factors: none Related Data Home Medications Medication Instructions Recorded Confirmed acetaminophen 325 mg capsule 325 mg PO QID PRN 06/29/21 06/22/22 (Tylenol) Previous Rx's Medication Instructions Recorded omeprazole 20 mg capsule,delayed 20 mg PO DAILY #90 caps 08/02/20 release lorazepam 0.5 mg tablet 0.5 mg PO DAILY 30 days #30 tabs 12/10/20 simvastatin 20 mg tablet 20 mg PO BEDTIME #90 tabs 12/26/21 lisinopril 5 mg tablet 5 mg PO DAILY 90 days #90 tabs 01/26/22 metformin 500 mg tablet 500 mg PO BID #180 tabs 02/28/22 folic acid 1 mg tablet 1 mg PO DAILY #90 tabs 03/06/22 lancets 33 gauge (TRUEplus Lancets) 33 gauge miscellaneous DAILY for 03/30/22 diabetes mellitus #100 ea cholecalciferol (vitamin D3) 25 25 mcg PO DAILY #30 tabs 04/03/22 mcg (1,000 unit) tablet blood sugar diagnostic (FreeStyle #50 strips 04/23/22 Lite Strips) methotrexate sodium 2.5 mg tablet 15 mg PO QWEEK #24 tabs 05/02/22 terazosin 5 mg capsule 5 mg PO BEDTIME 90 days #90 caps 06/22/22 Allergies Allergy/AdvReac Type Severity Reaction Status Date / Time hydrocodone [From VICODIN] Allergy Intermediate Vomiting Verified 06/22/22 20:30 Hydrocodone-Acetaminophen Allergy Intermediate vomiting, Uncoded 06/22/22 20:30 dizziness Review of Systems Constitutional: Constitutional: Reports no additional constitutional complaints Cardiovascular: Cardiovascular: Reports no additional cardiovascular complaints Musculoskeletal: Musculoskeletal: Reports no additional musculoskeletal complaints PMFSH Past Medical History Medical History Anxiety Benign essential hypertension Diabetes mellitus GERD without esophagitis 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 Overweight (BMI 25.0-29.9) Pure hypercholesterolemia Seropositive rheumatoid arthritis Vitamin D deficiency Surgical History History of hernia surgery Family History Family History Father Diabetes Mother CVD (cardiovascular disease) Social History Social History Alcohol intake: never Patient Tobacco Use Status: Former Tobacco user Tobacco use type: Cigarette Cigarettes Per Day: 20 Years Smoked: 15 e-Cigarette/Vaping Use: Never Used Advance Directives: No Advance Directives Information Provided: No Physical Exam ED Vital Signs: Vital Signs - 24 hr 09/14/22 07:59 09/14/22 09:30 Temperature 97.9 F Pulse Rate 94 74 Respiratory Rate 18 16 Blood Pressure 138/84 118/67 Pulse Oximetry 95 98 Oxygen Delivery Method Room Air Room Air BMI result Body Mass Index 29.2 Const General: cooperative Nutritional Appearance: average body habitus and well nourished Orientation/consciousness: patient oriented x3 HENMT Head: Yes normal to inspection General nose exam: Normal external nose present Face and sinus: Yes normal facial exam Throat: Yes posterior oropharynx normal Neck Neck: Yes normal visual inspection Chest Chest palpation & inspection: normal inspection of the chest Resp Effort & Inspection: normal respiratory effort Auscultation: clear to auscultation bilaterally Cardio Jugular venous distension: no JVD Rate: regular rate Rhythm: regular rhythm GI Inspection: Yes normal to inspection Palpation (GI): Soft to palpation and not firm Auscultation: normal bowel sounds Back/Spine/Pelvis Other: There is tenderness in the mid cervical spine posteriorly, range of motion is full Skin General skin exam: no rashes or lesions noted Lesions: no lesions Rashes: no rashes Neuro General: patient oriented x3 Course Reevaluation(s) Reevaluation #1: Patient was able to ambulate without any problems, CT scan was negative shoulder x-ray negative will discharge home Time: 10:26 Medications Administered Discontinued Medications Generic Name Dose Route Start Last Admin Trade Name Freq PRN Reason Stop Dose Admin Acetaminophen 975 mg 09/14/22 08:03 09/14/22 08:10 Acetaminophen 325 Mg Tablet PO 09/14/22 08:04 975 mg ONCE ONE Administration Ibuprofen 600 mg 09/14/22 08:03 09/14/22 08:10 Ibuprofen 600 Mg Tablet PO 09/14/22 08:04 600 mg ONCE ONE Administration Medical Decision Making Differential Diagnosis Differential Diagnoses: The differential diagnosis associated with the presentation includes Fracture/dislocation Independent Interpretation I performed an independent interpretation of an: CT Scan Interpretation: negative Radiology Impression Discussion of test interpretation with radiology: I have reviewed the radiologist's reading. Radiologist Impression: [address] [address] [address] Scan Report Signed Patient: Flex Correia MR#: [id number] : 1935 Acct:[id number] Age/Sex: 87 / M ADM Date: 09/14/22 Loc: HO.ED Attending Dr: Ordering Physician: Clarence Hoff MD Date of Service: 09/14/22 Procedure(s): CT cervical spine wo IV con Accession Number(s): [id number] cc: Clarence Hoff MD~ EXAMINATION: CT HEAD W/O IV CONTRAST CT CERVICAL SPINE W/O IV CONTRAST CLINICAL INFORMATION: Trauma. COMPARISON: Head CT from 05/11/2017 TECHNIQUE: Head - Contiguous axial imaging of the head was performed from the skull base to the vertex without the administration of intravenous contrast, and axial images are reconstructed at 2 mm and 5 mm slice thickness. Cervical spine - A volumetric, helical CT acquisition of the cervical spine was obtained without contrast; in addition to the standard set of axial images, multiplanar reformatted images were provided in the coronal and sagittal imaging planes. This CT examination was performed using dose optimization techniques as appropriate, variously including the following: *Automated exposure control *Adjustment of mA and/or kV according to patient size (this includes techniques or standardized protocols for targeted exams where dose is matched to indication/reason for exam; i.e. extremities or head) *Use of iterative reconstruction technique DLP: 1040 mGy-cm (total) FINDINGS: HEAD: No intracranial hemorrhage, extra-axial surface collection, focal mass effect or midline shift. Chronic parenchymal volume loss with commensurate prominence of ventricles and sulci; no hydrocephalus. Chronic hypoattenuation within supratentorial matter is compatible with sequela of microangiopathy. The castillo-white matter differentiation is maintained. There is atherosclerotic calcification of cavernous carotid arteries. Again noted is the drew hole of the left parietal bone near the vertex. ?The visualized paranasal sinuses are clear. There is a left mastoid effusion. The temporomandibular joints are intact. The orbits and globes are unremarkable. There are dental caries, and periapical lucency is seen around roots of the left maxillary central incisor and right lateral incisor. CERVICAL SPINE: The craniocervical junction is normal. The occipital condyles, dens and atlantodental articulation are intact. The vertebral body heights are maintained.? No fractures in the anterior or posterior elements. No prevertebral soft tissue edema. Multilevel facet osteoarthritis and multilevel mild discovertebral degenerative changes are associated with a stairstep pattern of minimal degenerative anterolisthesis at all levels (from C2-C3 to C6-C7. There are small posterior disc-osteophyte complexes at multiple levels. No hematoma in the visualized neck. A focus of nuchal ligament ossification projects posterior to C4. There is mucus along the anterior tracheal wall. A hypodense nodule within the right thyroid lobe is approximately 2 cm in AP dimension (1.7 cm on 09/03/2014). Note that in patients with significant comorbidities or limited life expectancy, thyroid ultrasound follow-up would not be recommended (unless clinically warranted). Centrilobular and paraseptal emphysema at the visualized upper lobes. No pneumothorax. CT/CT cervical spine wo IV con IMPRESSION: *? No acute intracranial pathology compared to the head CT from 05/11/2017. *? Chronic parenchymal volume loss and chronic small vessel ischemic changes of supratentorial white matter. *? No acute osseous injury within the degenerated cervical spine. *? Incidental noted is periodontal disease and dental caries of the maxilla. ? ? ? Discharge Plan Discharge Clinical Impression: Neck strain Patient Disposition: Home, Self-Care Instructions: Cervical Sprain (ED) Additional Instructions: He can take a extra-strength Tylenol 2 tablets every 6 hours for pain, this will be the safest medication for you. Also follow-up with your primary care physician called today make an appoint Prescriptions: No Action omeprazole 20 mg capsule,delayed release(DR/EC) 20 mg PO DAILY Qty: 90 1RF lorazepam 0.5 mg tablet 0.5 mg PO DAILY 30 Days Qty: 30 0RF simvastatin 20 mg tablet 20 mg PO BEDTIME Qty: 90 1RF lisinopril 5 mg tablet 5 mg PO DAILY 90 Days Qty: 90 1RF metformin 500 mg tablet 500 mg PO BID Qty: 180 0RF folic acid 1 mg tablet 1 mg PO DAILY Qty: 90 0RF lancets [TRUEplus Lancets] 33 gauge misc 33 gauge miscellaneous DAILY Qty: 100 0RF cholecalciferol (vitamin D3) 25 mcg (1,000 unit) tablet 25 mcg PO DAILY Qty: 30 2RF (DME) FreeStyle Lite Strips Strip See Rx Instructions .ROUTE .COMPLEX Qty: 50 3RF Dose Instruction: TEST BLOOD SUGAR DAILY Rx Instructions: TEST BLOOD SUGAR DAILY methotrexate sodium 2.5 mg tablet 15 mg PO QWEEK Qty: 24 0RF acetaminophen [Tylenol] 325 mg capsule 325 mg PO QID PRN terazosin 5 mg capsule 5 mg PO BEDTIME 90 Days Qty: 90 0RF Referrals: Physician,Unknown J [Physician] - 1 day Interventions: ED Discharge Assessment Last Done: 09/14/22 10:40 Discharge Date/Time: 09/14/22 10:50
[2022-09-14] MEDS: Acetaminophen 325 MG TABLET 975 MG PO (08:10)
[2022-09-14] MEDS: Ibuprofen 600 MG TABLET PO (08:10)
[2022-09-14 09:30] VITALS: BP 118/67; PULSE 74; RESP 16; O2SAT 98
--- NOTE | 2022-09-14 10:15 | PC.NURSE ---
pt ambulated independently with walker. no issues
== END 2022-09-14 10:50 | disposition home or self-care (01) ==
PROVIDERS: Emergency Provider Emergency Medicine; PCP Internal Medicine
DX: M54.2 Cervicalgia (principal); R51.9 Headache, unspecified; M25.512 Pain in left shoulder; Z79.899 Other long term (current) drug therapy
CPT/HCPCS: 70450; 72125; 73030; 99284

== ENCOUNTER 2022-10-13 08:04 | Emergency (ER) | payer MEDICARE, OTHER, SELFPAY ==
--- NOTE | 2022-10-13 08:07 | ED_ITS ---
HPI - General Adult General Chief complaint: Neck Pain/Injury Stated complaint: neck pain Time Seen by Provider: 10/13/22 08:06 Source: patient and EMS Mode of arrival: EMS Limitations: no limitations History of Present Illness HPI narrative: Patient is an 87 year old assigned male at with a history of BPH, DM, and HTN presenting to the emergency department today with persistent neck pain. Patient states that he fell over a month ago and continues to have neck pain from it. Patient denies any new falls. Patient denies any dizziness, lightheadedness, abdominal pain, nausea, vomiting, fever, chills, blurry vision, double vision, loss of vision, chest pain, difficulty breathing, shortness of breath, back pain, night sweats, pain with urination, increased urinary frequency, increased urinary urgency, blood in his urine or stool, syncope or a near syncopal episode, bowel incontinence, bladder incontinence, bowel retention, bladder retention, or any other complaints at this time. Onset (ago): month(s) Location: neck Radiation: non-radiation Severity: mild Severity scale (1-10): 3 Quality: aching and dull Pain Consistency: constant Relieving factors: none Exacerbating factors: movement Associated symptoms: denies other symptoms Treatments prior to arrival: none Related Data Home Medications Medication Instructions Recorded Confirmed acetaminophen 325 mg capsule 325 mg PO QID PRN 06/29/21 06/22/22 (Tylenol) Previous Rx's Medication Instructions Recorded omeprazole 20 mg capsule,delayed 20 mg PO DAILY #90 caps 08/02/20 release lorazepam 0.5 mg tablet 0.5 mg PO DAILY 30 days #30 tabs 12/10/20 simvastatin 20 mg tablet 20 mg PO BEDTIME #90 tabs 12/26/21 lisinopril 5 mg tablet 5 mg PO DAILY 90 days #90 tabs 01/26/22 metformin 500 mg tablet 500 mg PO BID #180 tabs 02/28/22 folic acid 1 mg tablet 1 mg PO DAILY #90 tabs 03/06/22 lancets 33 gauge (TRUEplus Lancets) 33 gauge miscellaneous DAILY for 03/30/22 diabetes mellitus #100 ea cholecalciferol (vitamin D3) 25 25 mcg PO DAILY #30 tabs 04/03/22 mcg (1,000 unit) tablet blood sugar diagnostic (FreeStyle #50 strips 04/23/22 Lite Strips) methotrexate sodium 2.5 mg tablet 15 mg PO QWEEK #24 tabs 05/02/22 terazosin 5 mg capsule 5 mg PO BEDTIME 90 days #90 caps 06/22/22 lidocaine 4 % topical patch 1 patch topical DAILY PRN pain #15 10/13/22 (Aspercreme (lidocaine)) ea Allergies Allergy/AdvReac Type Severity Reaction Status Date / Time hydrocodone [From VICODIN] Allergy Intermediate Vomiting Verified 06/22/22 20:30 Hydrocodone-Acetaminophen Allergy Intermediate vomiting, Uncoded 06/22/22 20:30 dizziness Review of Systems Constitutional: Constitutional: Reports no additional constitutional complaints, Denies chills, Denies fever(s) and Denies night sweats Eyes: Eyes: Reports no additional eye complaints, Denies blurry vision, Denies change in vision, Denies diplopia, Denies eye discharge, Denies loss of vision and Denies eye pain ENT: Denies dizziness and Reports neck pain Cardiovascular: Cardiovascular: Reports no additional cardiovascular com plaints, Denies chest pain, Denies lightheadedness, Denies Loss of Consciousness and Denies dyspnea Respiratory: Respiratory: Reports no additional respiratory complaints and Denies dyspnea Gastrointestinal: Gastrointestinal: Reports no additional gastrointestinal complaints, Denies abdominal pain, Denies melena, Denies hematochezia, Denies change in bowel habits and Denies change in stool character Genitourinary: Genitourinary: Reports no additional male genitourinary complaints, Denies hematuria, Denies oliguria, Denies difficulty urinating, Denies dysuria, Denies urinary frequency, Denies urinary hesitancy, Denies urinary incontinence and Denies urinary urgency Musculoskeletal: Musculoskeletal: Reports no additional musculoskeletal complaints, Reports neck pain, Denies numbness and Denies tingling Neurologic: Denies dizziness, Denies loss of vision, Denies numbness and Denies tingling Psychiatric: Psychiatric: Reports no additional psychiatric complaints Endocrine: Endocrine: Reports no additional endocrine complaints Hematologic/Lymphatic: Hematologic/Lymphatic: Reports no additional hematologic/lymphatic complaints Allergic/Immunologic: Allergic/Immunologic: Reports no additional allergic/immunologic complaints PMFSH Past Medical History Attestation statement: The following information was validated with the patient. 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 Overweight (BMI 25.0-29.9) Pure hypercholesterolemia Seropositive rheumatoid arthritis Vitamin D deficiency Surgical History History of hernia surgery Family History Family History Father Diabetes Mother CVD (cardiovascular disease) Social History Social History Alcohol intake: never Patient Tobacco Use Status: Former Tobacco user Tobacco use type: Cigarette Cigarettes Per Day: 20 Years Smoked: 15 Smoked in Last 30 Days: No e-Cigarette/Vaping Use: Never Used Use of substances other than those prescribed or required for medical reasons: No Advance Directives: No Advance Directives Information Provided: Yes Physical Exam ED Vital Signs: Vital Signs - 24 hr 10/13/22 08:10 10/13/22 08:18 10/13/22 09:12 Temperature 97.7 F 97.7 F Pulse Rate 82 82 Respiratory Rate 16 16 Blood Pressure 193/98 H 193/98 H 174/86 H Pulse Oximetry 99 99 Oxygen Delivery Method Room Air Room Air 10/13/22 11:15 Temperature Pulse Rate Respiratory Rate 20 Blood Pressure 210/96 H Pulse Oximetry 98 Oxygen Delivery Method Room Air BMI result Body Mass Index 27.7 Const General: cooperative, no acute distress, alert and awake Nutritional Appearance: well nourished Orientation/consciousness: patient oriented x3 Limitations: no limitations HENMT Head: Yes normal to inspection and Yes atraumatic Ears: hearing grossly normal bilaterally and external ears normal General nose exam: Normal external nose present, no nasal discharge noted and no epistaxis Face and sinus: Yes normal facial exam, No abrasion and No laceration Mouth: Normal oral and palatal mucosa present, no drooling and no muffled voice Eyes General: appearance normal, both eyes and all related structures Periorbital: periorbital findings normal Eyelids: Yes eyelids normal Conjunctivae: conjunctivae normal Pupils: Equal, round and reactive pupils present EOM: EOMs intact bilaterally Neck Neck: Yes normal visual inspection, Yes full ROM and Yes no lymphadenopathy Chest Chest palpation & inspection: normal inspection of the chest Resp Effort & Inspection: normal respiratory effort and able to speak in complete sentences Auscultation: clear to auscultation bilaterally GI Inspection: Yes normal to inspection Neuro General: patient oriented x3 and moves all extremities Cranial nerves: Yes Equal, round and reactive pupils present Cognition (Neuro): normal cognition Motor exam (neuro): 5/5 motor strength present throughout Sensory Exam: Normal double simultaneous stimulation for sensation Coordination: [id number] test normal Extrem General: Yes normal to inspection, Yes full ROM and Yes capillary refill normal Psych Appearance: grossly normal Mental Status: mental status grossly normal Affect: normal affect Attitude: cooperative Thought process: Normal thought process present Thought content: Normal thought content present Insight: Good insight present (Psych) Medications Administered Discontinued Medications Generic Name Dose Route Start Last Admin Trade Name Freq PRN Reason Stop Dose Admin Cyclobenzaprine HCl 5 mg 10/13/22 08:12 10/13/22 08:23 Cyclobenzaprine Hcl 5 Mg Tablet PO 10/13/22 08:13 5 mg ONCE ONE Administration Lidocaine 1 patch 10/13/22 08:12 10/13/22 08:23 Lidocaine 4 % Patch Adh..Patch TRANSDERMA 10/13/22 08:13 1 patch ONCE ONE Administration Protocol Lidocaine 1 patch 10/13/22 10:59 10/13/22 11:13 Lidocaine 4 % Patch Adh..Patch TRANSDERMA 10/13/22 11:00 1 patch ONCE ONE Administration Protocol Lisinopril 5 mg 10/13/22 08:31 10/13/22 09:11 Lisinopril 5 Mg Tablet PO 10/13/22 08:32 5 mg ONCE ONE Administration Protocol Medical Decision Making Medical Decision Making [facility] Narrative: Patient is an 87 year old assigned male at with a history of HTN, DM, GERD, and anxiety presenting to the emergency department today with neck pain. Patient's physical exam was unremarkable. Patient's blood work was unremarkable. Patient's EKG was unremarkable. Patient was evaluated by PT and Case management who arranged home services for the patient. Patient was hypertensive while in the department however, patient did not have any headache, blurry vision, loss of vision, nausea, dizziness, or any other type of hypertensive symptoms. I believe this to be chronic for the patient and encouraged him to take his medications and maintain a blood pressure diary. Patient's clinical presentation is most consistent with a neck strain considering his work up, physical exam, and improvement from lidocaine patches. I explained my physical exam findings as well as all test results to the patient. I answered all questions asked by the patient. I stressed the importance of the patient taking his medication as prescribed. I stressed the importance of the patient following up with his primary care provider. I stressed the importance of the patient returning to the emergency department immediately if his symptoms were to worsen or if [he/she/they] were to develop any dizziness, shortness of breath, difficulty breathing, chest pain, blurry vision, loss of vision, nausea, vomiting, abdominal pain, fever, chills, back pain, or any other complaints. Patient diamond balized agreement and understanding with this treatment plan and discharge. Differential Diagnosis Differential Diagnoses: The differential diagnosis associated with the presentation includes neck strain, HTN Lab Data MDM Lab Attestation statement: I reviewed the patient's lab results. 10/13/22 08:52 10/13/22 08:52 Labs: Lab Results 10/13/22 10/13/22 10/13/22 Range/Units 08:52 08:52 08:52 WBC 6.8 (4.8-10.8) X10*3/uL RBC 5.00 (4.60-5.80) X10*6/uL Hgb 14.8 (14.0-18.0) g/dl Hct 43.5 (42.0-52.0) % MCV 87.0 (80.0-98.0) fL MCH 29.6 (27.0-33.0) pg MCHC 34.0 (31.0-36.0) g/dl RDW 13.6 (11.0-16.0) % Plt Count 237 (160-400) X10*3/uL MPV 10.6 (9.4-12.4) fL Immature Gran % (Auto) 0.1 (0.0-0.4) % Neut % (Auto) 74.3 H (45-73) % Lymph % (Auto) 14.7 L (20-40) % [place] % (Auto) 7.7 (2-11) % Eos % (Auto) 1.9 (0-4) % Baso % (Auto) 1.3 (0-2) % Lymph # (Auto) 1.0 L (1.2-4.9) X10*3/uL [place] # (Auto) 0.5 (0.1-1.2) X10*3/uL Eos # (Auto) 0.1 (0.0-0.4) X10*3/uL Baso # (Auto) 0.1 (0.0-0.2) X10*3/uL Abs Immat Gran (auto) 0.01 (0.00-0.03) X10*3/uL Absolute Neuts (auto) 5.0 (2.0-8.3) x10*3/uL Absolute Nucleated RBC 0.000 (0.0-0.012) X10*3/uL Nucleated RBC % (auto) 0.0 (0.0-0.2) /100WBC Sodium 139 (135-145) mmol/L Potassium 3.7 (3.3-5.1) mmol/L Chloride 105 (96-108) mmol/L Carbon Dioxide 27 (22-29) mmol/L Anion Gap 11 L (12-20) BUN 16 (9-16) mg/dL Creatinine 1.01 (0.5-1.4) mg/dL Estim Creat Clear Calc 58.5 Estimated GFR > 60 Random Glucose 124 H (60-115) mg/dL Calcium 9.0 (8.4-10.2) mg/dL Magnesium 1.5 L (1.6-2.6) mg/dL Total Bilirubin 0.6 (0.0-1.0) mg/dL AST 10 (5-37) U/L ALT 7 (0-40) U/L Alkaline Phosphatase 86 (39-117) U/L Troponin I High Sens < 2.7 (<3.5-35.0) ng/L Total Protein 6.5 (6.5-8.0) g/dL Albumin 3.7 (3.5-5.0) g/dL COVID-19 (EDUIN) (Negative) COVID-19 Clin Com 10/13/22 Range/Units 08:52 WBC (4.8-10.8) X10*3/uL RBC (4.60-5.80) X10*6/uL Hgb (14.0-18.0) g/dl Hct (42.0-52.0) % MCV (80.0-98.0) fL MCH (27.0-33.0) pg MCHC (31.0-36.0) g/dl RDW (11.0-16.0) % Plt Count (160-400) X10*3/uL MPV (9.4-12.4) fL Immature Gran % (Auto) (0.0-0.4) % Neut % (Auto) (45-73) % Lymph % (Auto) (20-40) % [place] % (Auto) (2-11) % Eos % (Auto) (0-4) % Baso % (Auto) (0-2) % Lymph # (Auto) (1.2-4.9) X10*3/uL [place] # (Auto) (0.1-1.2) X10*3/uL Eos # (Auto) (0.0-0.4) X10*3/uL Baso # (Auto) (0.0-0.2) X10*3/uL Abs Immat Gran (auto) (0.00-0.03) X10*3/uL Absolute Neuts (auto) (2.0-8.3) x10*3/uL Absolute Nucleated RBC (0.0-0.012) X10*3/uL Nucleated RBC % (auto) (0.0-0.2) /100WBC Sodium (135-145) mmol/L Potassium (3.3-5.1) mmol/L Chloride (96-108) mmol/L Carbon Dioxide (22-29) mmol/L Anion Gap (12-20) BUN (9-16) mg/dL Creatinine (0.5-1.4) mg/dL Estim Creat Clear Calc Estimated GFR Random Glucose (60-115) mg/dL Calcium (8.4-10.2) mg/dL Magnesium (1.6-2.6) mg/dL Total Bilirubin (0.0-1.0) mg/dL AST (5-37) U/L ALT (0-40) U/L Alkaline Phosphatase (39-117) U/L Troponin I High Sens (<3.5-35.0) ng/L Total Protein (6.5-8.0) g/dL Albumin (3.5-5.0) g/dL COVID-19 (EDUIN) Negative (Negative) COVID-19 Clin Com See Note Independent Interpretation I performed an independent interpretation of an: EKG Interpretation: Vent. Rate: 076 BPM ? ? Atrial Rate: 076 BPM P-R Int: 178 ms? QRS Dur: 088 ms QT Int: 386 ms ? ? ? P-R-T Axes: 072 -37 024 degrees QTc Int: 434 ms ? 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 History obtained from or confirmed by: EMS Discharge Plan Discharge Clinical Impression: Neck strain Patient Disposition: Home, Self-Care Instructions: Cervical Strain (DC) Additional Instructions: Follow up with your primary care provider. Return to the emergency department immediately if your symptoms worsen or if you develop any dizziness, shortness of breath, difficulty breathing, chest pain, blurry vision, loss of vision, nausea, vomiting, abdominal pain, fever, chills, back pain, or any other complaints. Prescriptions: New lidocaine [Aspercreme (lidocaine)] 4 % adhesive patch,medicated 1 patch topical DAILY PRN (Reason: pain) Qty: 15 0RF No Action omeprazole 20 mg capsule,delayed release(DR/EC) 20 mg PO DAILY Qty: 90 1RF lorazepam 0.5 mg tablet 0.5 mg PO DAILY 30 Days Qty: 30 0RF simvastatin 20 mg tablet 20 mg PO BEDTIME Qty: 90 1RF lisinopril 5 mg tablet 5 mg PO DAILY 90 Days Qty: 90 1RF metformin 500 mg tablet 500 mg PO BID Qty: 180 0RF folic acid 1 mg tablet 1 mg PO DAILY Qty: 90 0RF lancets [TRUEplus Lancets] 33 gauge misc 33 gauge miscellaneous DAILY Qty: 100 0RF cholecalciferol (vitamin D3) 25 mcg (1,000 unit) tablet 25 mcg PO DAILY Qty: 30 2RF (DME) FreeStyle Lite Strips Strip See Rx Instructions .ROUTE .COMPLEX Qty: 50 3RF Dose Instruction: TEST BLOOD SUGAR DAILY Rx Instructions: TEST BLOOD SUGAR DAILY methotrexate sodium 2.5 mg tablet 15 mg PO QWEEK Qty: 24 0RF acetaminophen [Tylenol] 325 mg capsule 325 mg PO QID PRN terazosin 5 mg capsule 5 mg PO BEDTIME 90 Days Qty: 90 0RF Referrals: [facility] [place] Family Medicine [Provider Group] (Call to establish and follow up with a primary care provider. If you already have a primary care provider, please follow up with them.) [facility] [place] Primary Care, [facility] [Provider Group] (Call to establish and follow up with a primary care provider. If you already have a primary care provider, please follow up with them.) [facility] [place] Primary Care,[place] [Provider Group] (Call to establish and follow up with a primary care provider. If you already have a primary care provider, please follow up with them.) Print Language: Telugu
[2022-10-13 08:10] VITALS: BP 134/90; BP 193/98; PULSE 78; PULSE 82; RESP 16; TEMP 36.5; O2SAT 98; O2SAT 99; BMI 27.7
[2022-10-13 08:18] VITALS: BP 193/98; PULSE 82; RESP 16; TEMP 36.5; O2SAT 99
[2022-10-13] MEDS: Lidocaine 4 % Patch ADH..PATCH 1 PATCH TRANSDERMA ×2 (08:23→11:13)
[2022-10-13] MEDS: Cyclobenzaprine HCl 5 MG TABLET PO (08:23)
--- NOTE | 2022-10-13 08:31 | ECG_ITS ---
Test Reason : neck pain Blood Pressure : / mmHG Vent. 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
[2022-10-13 08:55] LABS: MANUAL DIFF FLAG NO
[2022-10-13 08:57] LABS: Basophils Absolute Auto 0.1 X10*3/uL (0.0-0.2); Basophils Percent Auto 1.3 % (0-2); Eosinophils Absolute Auto 0.1 X10*3/uL (0.0-0.4); Eosinophils Percent Auto 1.9 % (0-4); Hematocrit 43.5 % (42.0-52.0); Hemoglobin 14.8 g/dl (14.0-18.0); Imm Gran Abs Auto 0.01 X10*3/uL (0.00-0.03); Imm Gran Pct Auto 0.1 % (0.0-0.4); Lymphocytes Percent Auto 14.7 % (20-40); Mean Corpuscular Hemoglobin 29.6 pg (27.0-33.0); Mean Platelet Volume 10.6 fL (9.4-12.4); Monocytes Absolute Auto 0.5 X10*3/uL (0.1-1.2); Monocytes Percent Auto 7.7 % (2-11); Neutrophils Percent Auto 74.3 % (45-73); Platelet Count 237 X10*3/uL (160-400); Red Cell Distribution Width 13.6 % (11.0-16.0); White Blood Count 6.8 X10*3/uL (4.8-10.8)
[2022-10-13] MEDS: lisinopriL 5 MG TABLET PO (09:11)
[2022-10-13 09:12] VITALS: BP 174/86
[2022-10-13 09:16] LABS: Alanine Aminotransferase 7 U/L (0-40); Albumin Level 3.7 g/dL (3.5-5.0); Alkaline Phosphatase 86 U/L (39-117); Anion Gap 11 (12-20); Aspartate Amino Transferase 10 U/L (5-37); Bilirubin Total 0.6 mg/dL (0.0-1.0); Blood Urea Nitrogen 16 mg/dL (9-16); COVID-19 Test Negative (Negative); Carbon Dioxide 27 mmol/L (22-29); Chloride 105 mmol/L (96-108); Creatinine Clr Calc Pharmacy 58.5; Estimated Glomerular Filt Rate > 60; Glucose Random 124 mg/dL (60-115); IDNOW Serial# BCCEAD1C; Magnesium 1.5 mg/dL (1.6-2.6); Potassium 3.7 mmol/L (3.3-5.1); Sodium 139 mmol/L (135-145); Total Protein 6.5 g/dL (6.5-8.0)
[2022-10-13 09:35] LABS: Troponin-I High Sensitivity < 2.7 ng/L (<3.5-35.0)
[2022-10-13 11:15] VITALS: BP 210/96; RESP 20; O2SAT 98
--- NOTE | 2022-10-13 12:21 | MHC.CM.ED ---
Received case management consult from Danielle BRUCE. Patient came to the ER due to neck pain. Work up essentially negative. Physical therapy eval completed. Home therapy is recommended. Met with patient in regards to discharge planning. Patient lives alone, ambulates with a cane, and had no services prior to coming to the hospital. PCP verified as Dr Quintero. Patient aware [facility] referral will have to be broadcasted. Referral broadcasted. [facility] able [facility] accept patient. Patient accepts. Lyft will be arranged for patient. Patient, Waleska SERVIN and Danielle BRUCE aware. Continue to monitor for d/c needs.
== END 2022-10-13 12:48 | disposition home or self-care (01) ==
PROVIDERS: Physician Assistant Medical; Emergency Provider Emergency Medicine; PCP Internal Medicine
DX: M54.2 Cervicalgia (principal); R51.9 Headache, unspecified; R26.81 Unsteadiness on feet; Z20.822 Contact with and (suspected) exposure to COVID-19; Z20.828 Contact with and (suspected) exposure to other viral communicable diseases; Z79.899 Other long term (current) drug therapy
CPT/HCPCS: 36415; 80053; 83735; 84484; 85025; 87635; 93005; 97161; 99285

== ENCOUNTER 2023-03-15 13:09 | Emergency (ER) | payer MEDICARE, SELFPAY ==
--- NOTE | 2023-03-15 13:11 | ED.GENADULT ---
HPI - General Adult General Chief complaint: Skin/Abscess/Foreign Body Stated complaint: boil Time Seen by Provider: 03/15/23 14:10 Source: patient Mode of arrival: ambulatory Limitations: no limitations History of Present Illness HPI narrative: 87 y o male PMH DM, HTN, RA presenting for evaluation of boil on L gluteus x1 week. States he thinks it is a cyst or an abscess however has not been able to see the area. Describes it as a painful, indurated painful area on his left gluteal cheek. Reports he is not very mobile and sits in a chair for the vast majority of the day. Denies fevers, chills, chest pain, shortness of breath, abdominal pain, constipation and diarrhea, loss of bowels or bladder, saddle paresthesias. No previous trauma to the area. He reports nothing like this has happened before. Related Data Home Medications Medication Instructions Recorded Confirmed acetaminophen 325 mg capsule 325 mg PO QID PRN 06/29/21 06/22/22 (Tylenol) Previous Rx's Medication Instructions Recorded blood sugar diagnostic (FreeStyle #50 strips 02/13/23 Lite Strips) cholecalciferol (vitamin D3) 25 25 mcg PO DAILY #30 tabs 02/13/23 mcg (1,000 unit) tablet folic acid 1 mg tablet 1 mg PO DAILY #90 tabs 02/13/23 lancets 33 gauge (TRUEplus Lancets) 33 gauge miscellaneous DAILY for 02/13/23 diabetes mellitus #100 ea lidocaine 4 % topical patch 1 patch topical DAILY PRN pain #15 02/13/23 (Aspercreme (lidocaine)) ea lisinopril 5 mg tablet 5 mg PO DAILY 90 days #90 tabs 02/13/23 lorazepam 0.5 mg tablet 0.5 mg PO DAILY 30 days #30 tabs 02/13/23 metformin 500 mg tablet 500 mg PO BID #180 tabs 02/13/23 methotrexate sodium 2.5 mg tablet 15 mg (6 x 2.5 mg) PO QWEEK #24 02/13/23 tabs omeprazole 20 mg capsule,delayed 20 mg PO DAILY #90 caps 02/13/23 release simvastatin 20 mg tablet 20 mg PO BEDTIME #90 tabs 02/13/23 terazosin 5 mg capsule 5 mg PO BEDTIME 90 days #90 caps 02/13/23 cephalexin 500 mg tablet 500 mg PO Q6H 10 days #40 tabs 03/15/23 Allergies Allergy/AdvReac Type Severity Reaction Status Date / Time hydrocodone [From VICODIN] Allergy Intermediate Vomiting Verified 03/15/23 13:12 Hydrocodone-Acetaminophen Allergy Intermediate vomiting, Uncoded 06/22/22 20:30 dizziness Review of Systems Review of Systems: Constitutional : No Weight loss, No Fever, No Chills, No Fatigue, No Malaise Cardiovascular : No Chest Pain, No SOB, No Dyspnea on Exertion, No Orthopnea, No Edema, No Palpitations Respiratory : No Cough, No Sputum, No Wheezing Gastrointestinal : No Nausea, No Vomiting, No Diarrhea, No Constipation, No abdominal Pain, No Hematochezia, No Melena Genitourinary : No Dysuria, No Urinary Frequency, No Hematuria Musculoskeletal : No joint pain, No Myalgias, No Joint Swelling Skin : + Skin Lesions, No rash Neuro : No Weakness, No Numbness, No Dizziness, No Headache Psych : No Anxiety/Panic, No Depression All other systems reviewed and are negative Yes all other systems are reviewed and are negative [facility] Past Medical History Attestation statement: The following information was validated with the patient. 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 Overweight (BMI 25.0-29.9) Pure hypercholesterolemia Seropositive rheumatoid arthritis Vitamin D deficiency Surgical History History of hernia surgery Family History Family History Father Diabetes Mother CVD (cardiovascular disease) Social History Social History Alcohol intake: never Patient Tobacco Use Status: Former Tobacco user Tobacco use type: Cigarette Cigarettes Per Day: 20 Years Smoked: 15 e-Cigarette/Vaping Use: Never Used Advance Directives: Yes Advance Directives on File: Yes Advance Directives Date on File: 10/13/22 Physical Exam ED Vital Signs: Vital Signs - 24 hr 03/15/23 13:12 Temperature 98 F Pulse Rate 97 Respiratory Rate 18 Blood Pressure 146/73 H Pulse Oximetry 95 Oxygen Delivery Method Room Air BMI result Body Mass Index 26.5 VSS Appearance: Alert.? Oriented X3.? No acute distress.? Head: Normocephalic, atraumatic, no step-offs or deformities Eyes: Pupils equal, round and reactive to light.? CVS: Normal heart rate and rhythm.? Pulses normal.? Respiratory: No respiratory distress.? Breath sounds normal.? Abdomen: Soft and nontender.? Skin: Skin warm and dry.? Normal skin color.? Normal skin turgor.?stage II pressure sore to the superior aspect of left gluteal region measuring approximately 1 cm x 1 cm with overlying erythema and warmth. No palpable abscess. No signs of necrosis or gangrene Extremities: No lower extremity edema.? No calf ttp. 5/5 strength to bilateral upper and lower extremities Back: No midline tenderness, no C-spine tenderness, full range of motion, no CVA tenderness bilaterally Neuro: Oriented X 3.? No motor deficit.? No sensory deficit. CN 2-12 intact Course Course Course Narrative: This is a rapid medical exam: Additional HPI, ROS, PE not included below will be deferred to primary provider. Patient is an 87-year-old male presenting to the ED with complaint of a boil to left buttock for approximately 10 days. States has not improved or resolved. Denies fevers. Reports area is tender. Area not examined in triage due to privacy concerns. Reevaluation(s) Reevaluation #1: Educated patient on diagnosis and treatment plan, answered all question, patient verbalizes understanding. At this time patient will be discharged home, advised to return with new or worsening symptoms. Educated on worrisome signs and symptoms and when to return. At this time I feel comfortable discharge home. Medical Decision Making Medical Decision Making MDM Narrative: 87 y o male presenting for evaluation of a ?cyst on the L gluteal cheek x1 week PE significant for a stage II pressure sore to the superior aspect of left gluteal region measuring approximately 1 cm x 1 cm with overlying erythema and warmth. No palpable abscess. No signs of necrosis or gangrene Likely pressure ulcer versus cellulitis versus developing abscess versus abrasion. Unlikely gangrene, foreign ears, necrotizing infection, osteomyelitis, pilonidal cyst Plan will discharge home with antibiotics for cellulitis advice to switch positions frequently in get up and walk of possible and to follow-up with PCP. Differential Diagnosis Differential Diagnoses: The differential diagnosis associated with the presentation includes Likely pressure ulcer versus cellulitis versus developing abscess versus abrasion. Unlikely gangrene, foreign ears, necrotizing infection, osteomyelitis, pilonidal cyst Admission/Observation Consideration of admission/observation: Escalation of care including admission/observation considered unlikely Lab Data Labs: No indication Chronic Conditions Patient?s care impacted by: 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 and Other (BPH, RA) Discharge Plan Discharge Clinical Impression: Bedsore, Cellulitis Patient Disposition: Home, Self-Care Instructions: Cellulitis (ED), Pressure Injury (ED) Additional Instructions: Take your medications as prescribed. If you were prescribed antibiotics today, it is important that you take your medication to their entirety, do not skip any doses, do not finish them early. Follow-up with your primary care provider this week. Return to the emergency department with new or worsening symptoms. Such as fevers, chills, chest pain, shortness of breath, nausea, vomiting, dizziness, headache, vision changes, lethargy In case of emergency call 911 You likely have a bedsore, with overlying skin infection, please switch positions frequently and walk around as much as possible. Prescriptions: New cephalexin 500 mg tablet 500 mg PO Q6H 10 Days Qty: 40 0RF No Action (DME) FreeStyle Lite Strips Strip See Rx Instructions .ROUTE .COMPLEX Qty: 50 3RF Dose Instruction: TEST BLOOD SUGAR DAILY Rx Instructions: TEST BLOOD SUGAR DAILY cholecalciferol (vitamin D3) 25 mcg (1,000 unit) tablet 25 mcg PO DAILY Qty: 30 2RF folic acid 1 mg tablet 1 mg PO DAILY Qty: 90 0RF lancets [TRUEplus Lancets] 33 gauge misc 33 gauge miscellaneous DAILY Qty: 100 0RF lidocaine [Aspercreme (lidocaine)] 4 % adhesive patch,medicated 1 patch topical DAILY PRN (Reason: pain) Qty: 15 0RF lisinopril 5 mg tablet 5 mg PO DAILY 90 Days Qty: 90 0RF lorazepam 0.5 mg tablet 0.5 mg PO DAILY 30 Days Qty: 30 0RF metformin 500 mg tablet 500 mg PO BID Qty: 180 0RF methotrexate sodium 2.5 mg tablet 15 mg PO QWEEK Qty: 24 0RF omeprazole 20 mg capsule,delayed release(DR/EC) 20 mg PO DAILY Qty: 90 1RF simvastatin 20 mg tablet 20 mg PO BEDTIME Qty: 90 0RF terazosin 5 mg capsule 5 mg PO BEDTIME 90 Days Qty: 90 0RF acetaminophen [Tylenol] 325 mg capsule 325 mg PO QID PRN Referrals: Andry Quintero MD [Primary Care Provider] - 2 days Stand Alone Forms: Work/School Release
[2023-03-15 13:12] VITALS: BP 146/73; PULSE 97; RESP 18; TEMP 36.6; O2SAT 95; BMI 26.5
[2023-03-15 15:09] VITALS: BP 155/79; PULSE 68; RESP 18; TEMP 36.6; O2SAT 95
== END 2023-03-15 15:30 | disposition home or self-care (01) ==
PROVIDERS: Emergency Provider Emergency Medicine Emergency Medical Services; PCP Internal Medicine
DX: L89.322 Pressure ulcer of left buttock, stage 2 (principal); L03.317 Cellulitis of buttock; E11.9 Type 2 diabetes mellitus without complications; I10 Essential (primary) hypertension; E78.00 Pure hypercholesterolemia, unspecified; Z87.891 Personal history of nicotine dependence; Z79.899 Other long term (current) drug therapy
CPT/HCPCS: 99283; 99284

== ENCOUNTER 2023-03-19 21:40 | Emergency (ER) | payer MEDICARE, SELFPAY ==
[2023-03-19 21:44] VITALS: BP 140/86; BP 143/80; PULSE 112; PULSE 98; PULSE 99; RESP 16; O2SAT 94; O2SAT 97; BMI 25.1
[2023-03-19 21:50] VITALS: TEMP 36.6
--- NOTE | 2023-03-19 22:30 | PC.NURSE ---
pt reports fall out of bed without prior sx. states he lost balance; denies headstrike/loc. - thinners. on floor approx 2-3 minutes. pt reports has chronic back pain which makes it difficult to arise from bed at times; pain relieved with tylenol at home. pt reports recently seen here for bedsore in gluteal fold which appears as 2x2 circular becki; skin intact no redness/discharge noted. pt states he applies barrier cream and is compliant with prescribed abx. afebrile. vss. axox4. pt states he does not use his walker as I dont need it and ambulates independently at home. ambulation trial per Dr. Marin request. pt able to arise from stretcher without assistance. ambulatory with steady gait in [place].
--- NOTE | 2023-03-19 22:31 | ED.FALL ---
HPI - Fall General Chief Complaint: Fall Stated Complaint: FALL OUT OF BED BACK PAIN Time Seen by Provider: 03/19/23 22:08 Source: patient Mode of arrival: ambulatory Limitations: no limitations History of Present Illness HPI Narrative: This is a 87-year-old male with PMH pertinent for DM, HTN, RA, chronic back pain lives home alone because patients suffer from chronic back pain he is prone to mechanical fall patient was trying to get out of bed lost balance and fell on his right side, patient remained on the ground for 2-3 minutes called 911 himself on arrival no significant injuries was noticed by EMS. Patient was seen 4 days ago for stage II decubitus ulcer patient was discharged on Keflex. Patient declined head injury or neck pain no LOC, no CP, no SOB extremity tenderness or deformity, patient is able to ambulate at his normal baseline. Related Data Home Medications Medication Instructions Recorded Confirmed acetaminophen 325 mg capsule 325 mg PO QID PRN 06/29/21 06/22/22 (Tylenol) Previous Rx's Medication Instructions Recorded blood sugar diagnostic (FreeStyle #50 strips 02/13/23 Lite Strips) cholecalciferol (vitamin D3) 25 25 mcg PO DAILY #30 tabs 02/13/23 mcg (1,000 unit) tablet folic acid 1 mg tablet 1 mg PO DAILY #90 tabs 02/13/23 lancets 33 gauge (TRUEplus Lancets) 33 gauge miscellaneous DAILY for 02/13/23 diabetes mellitus #100 ea lidocaine 4 % topical patch 1 patch topical DAILY PRN pain #15 02/13/23 (Aspercreme (lidocaine)) ea lisinopril 5 mg tablet 5 mg PO DAILY 90 days #90 tabs 02/13/23 lorazepam 0.5 mg tablet 0.5 mg PO DAILY 30 days #30 tabs 02/13/23 metformin 500 mg tablet 500 mg PO BID #180 tabs 02/13/23 methotrexate sodium 2.5 mg tablet 15 mg (6 x 2.5 mg) PO QWEEK #24 02/13/23 tabs omeprazole 20 mg capsule,delayed 20 mg PO DAILY #90 caps 02/13/23 release simvastatin 20 mg tablet 20 mg PO BEDTIME #90 tabs 02/13/23 terazosin 5 mg capsule 5 mg PO BEDTIME 90 days #90 caps 02/13/23 cephalexin 500 mg tablet 500 mg PO Q6H 10 days #40 tabs 03/15/23 Allergies Allergy/AdvReac Type Severity Reaction Status Date / Time hydrocodone [From VICODIN] Allergy Intermediate Vomiting Verified 03/15/23 13:12 Hydrocodone-Acetaminophen Allergy Intermediate vomiting, Uncoded 06/22/22 20:30 dizziness Review of Systems Review of Systems: All other systems are reviewed and are negative Constitutional: Reports as per HPI and Reports no additional constitutional complaints Eyes: Reports as per HPI and Reports no additional eye complaints Reports system reviewed and no additional complaints, except as documented Cardiovascular: Reports as per HPI and Reports no additional cardiovascular complaints Respiratory: Reports as per HPI and Reports no additional respiratory complaints Gastrointestinal: Reports as per HPI and Reports no additional gastrointestinal complaints Genitourinary: Reports no additional female genitourinary complaints Musculoskeletal: Reports no additional musculoskeletal complaints Skin/Breast: Reports system reviewed and no additional complaints, except as docu Psychiatric: Reports no additional psychiatric complaints Endocrine: Reports no additional endocrine complaints Hematologic/Lymphatic: Reports no additional hematologic/lymphatic complaints Allergic/Immunologic: Reports no additional allergic/immunologic complaints Reports system reviewed and no additional complaints, except as documented and Reports Abnormal speech present [facility] Past Medical History Medical History Vitamin D deficiency GERD without esophagitis Overweight (BMI 25.0-29.9) Anxiety Diabetes mellitus Pure hypercholesterolemia Benign essential hypertension 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 Seropositive rheumatoid arthritis Surgical History History of hernia surgery Family History Family History Father Diabetes Mother CVD (cardiovascular disease) Social History Social History Alcohol intake: never Patient Tobacco Use Status: Former Tobacco user Tobacco use type: Cigarette Cigarettes Per Day: 20 Years Smoked: 15 e-Cigarette/Vaping Use: Never Used Advance Directives: Yes Advance Directives on File: Yes Advance Directives Date on File: 10/13/22 Physical Exam Vital Signs: Vital Signs: Last Vital Signs Temp 98 F 03/19/23 21:50 Pulse 98 03/19/23 21:44 Resp 16 03/19/23 21:44 BP 143/80 H 03/19/23 21:44 Pulse Ox 94 03/19/23 21:44 O2 Del Method Room Air 03/19/23 21:44 BMI result Body Mass Index 25.1 Vital signs have been reviewed and appear to be correct. Blood pressure elevated. Heart rate normal. Respiratory rate normal. Temperature normal. Oxygen saturation normal. Appearance: Alert. Oriented X3. No acute distress. Head: Normal external exam. Normocephalic. Atraumatic. No Caro signs noted. No raccoon eyes noted Eyes: PERRLA. EOMI. Conjunctiva and sclera normal. Eyelids normal. ENT: TM's Normal. Pharynx normal. Uvula midline. Moist mucous membranes. No trismus noted. No drooling noted. No muffled voice noted. Neck: Normal inspection. Neck supple. FROM. No adenopathy. Thyroid Normal. No meningeal signs. No neck mass noted. CVS: Normal heart rate and rhythm. Heart sound normal. No murmurs noted. Pulses normal throughout. Respiratory: No respiratory distress. Painless inspiration. Breath sounds normal. No wheezes/rales/rhonchi noted. Chest nontender. No accessory muscle usage noted or decreased air movement noted. Abdomen: Soft and nontender. Bowel sounds normal in all 4 quadrants. No distention noted. No organomegaly noted. No visible injury noted. Back: No CVA tenderness. Full range of motion noted. 3x 2 cm area of healing decubitus ulcer mostly on the left buttock. Skin: Skin warm and dry. Normal skin color. Normal skin turgor. No rashes/lesions/lacerations noted. Extremities: No lower extremity edema. Extremities exhibit normal range of motion. Extremities nontender. Neuro: Oriented X 3. Cranial nerve exam: II-XII are grossly intact No motor deficit. No sensory deficit. Reflexes normal. Course Reevaluation(s) Reevaluation #1: S/p mechanical fall from bed at home, no obvious injuries on exam, patient is able to ambulate in the emergency department, patient is declining going to a rehab or short-term rehab facility want to be going back home. At this point no further intervention is needed. Time: 22:36 Medical Decision Making Differential Diagnosis Differential Diagnoses: The differential diagnosis associated with the presentation includes (Head injury, neck injury, fracture.) Admission/Observation Consideration of admission/observation: Escalation of care including admission/observation considered Discharge Plan Discharge Clinical Impression: Accident due to mechanical fall without injury Qualifiers: Encounter type: initial encounter Qualified Code(s): W19.XXXA - Unspecified fall, initial encounter Patient Disposition: Home, Self-Care Instructions: Fall Prevention for Older Adults (ED) Prescriptions: No Action (DME) FreeStyle Lite Strips Strip See Rx Instructions .ROUTE .COMPLEX Qty: 50 3RF Dose Instruction: TEST BLOOD SUGAR DAILY Rx Instructions: TEST BLOOD SUGAR DAILY cholecalciferol (vitamin D3) 25 mcg (1,000 unit) tablet 25 mcg PO DAILY Qty: 30 2RF folic acid 1 mg tablet 1 mg PO DAILY Qty: 90 0RF lancets [TRUEplus Lancets] 33 gauge misc 33 gauge miscellaneous DAILY Qty: 100 0RF lidocaine [Aspercreme (lidocaine)] 4 % adhesive patch,medicated 1 patch topical DAILY PRN (Reason: pain) Qty: 15 0RF lisinopril 5 mg tablet 5 mg PO DAILY 90 Days Qty: 90 0RF lorazepam 0.5 mg tablet 0.5 mg PO DAILY 30 Days Qty: 30 0RF metformin 500 mg tablet 500 mg PO BID Qty: 180 0RF methotrexate sodium 2.5 mg tablet 15 mg PO QWEEK Qty: 24 0RF omeprazole 20 mg capsule,delayed release(DR/EC) 20 mg PO DAILY Qty: 90 1RF simvastatin 20 mg tablet 20 mg PO BEDTIME Qty: 90 0RF terazosin 5 mg capsule 5 mg PO BEDTIME 90 Days Qty: 90 0RF cephalexin 500 mg tablet 500 mg PO Q6H 10 Days Qty: 40 0RF acetaminophen [Tylenol] 325 mg capsule 325 mg PO QID PRN
--- NOTE | 2023-03-19 22:49 | PC.NURSE ---
Dr. Marin stated pt is medically cleared and able to be d/c home. pt reports unable to get ride back home from family/friends; does not drive. 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
[2023-03-20 00:13] VITALS: BP 185/95; PULSE 98; RESP 16; O2SAT 95
== END 2023-03-20 00:16 | disposition home or self-care (01) ==
PROVIDERS: Emergency Provider Emergency Medicine; PCP Internal Medicine
DX: S39.92XA Unspecified injury of lower back, initial encounter (principal); R94.31 Abnormal electrocardiogram [ECG] [EKG]; W06.XXXA Fall from bed, initial encounter; Y93.9 Activity, unspecified; Y92.9 Unspecified place or not applicable; Y99.9 Unspecified external cause status; Z79.899 Other long term (current) drug therapy
CPT/HCPCS: 93005; 99283; 99285

== ENCOUNTER 2023-04-02 14:19 | Outpatient (AMB) | payer MEDICARE, MEDICAID, SELFPAY ==
--- NOTE | 2023-04-02 14:20 | MHC.PC.OV ---
Vital Signs 04/02/23 14:21 Height 5 ft 10 in Weight 174 lb BMI 25.0 BP 144/82 H Blood Pressure Location Lt brachial Position Sitting Pulse 47 L Pulse Source Pulse Oximeter Pulse Oximetry (%) 99 Oxygen Delivery Method Room Air Intake [place] [facility] [place] Communications Project Lead Required: No Accompanied by: Self / Same As Patient Allergies hydrocodone [From VICODIN] Allergy (Intermediate, Verified 09/18/23 11:01) Vomiting Hydrocodone-Acetaminophen Allergy (Intermediate, Uncoded 09/18/23 11:01) vomiting, dizziness Medication List - Last Reconciled 04/02/23 by Andry Quintero MD acetaminophen (Tylenol) 325 mg PO QID PRN blood sugar diagnostic (FreeStyle Lite Strips) TEST BLOOD SUGAR DAILY cephalexin 500 mg PO Q6H cholecalciferol (vitamin D3) 25 mcg PO DAILY folic acid 1 mg PO DAILY lancets (TRUEplus Lancets) 33 gauge miscellaneous DAILY lidocaine 4% (Aspercreme (lidocaine)) 1 patch topical DAILY PRN lisinopril 5 mg PO DAILY 90 days lorazepam 0.5 mg PO DAILY 30 days metformin 500 mg PO BID methotrexate sodium 15 mg (6 x 2.5 mg) PO QWEEK omeprazole 20 mg PO DAILY simvastatin 20 mg PO BEDTIME terazosin 5 mg PO BEDTIME 90 days Tobacco use date assessed: 04/02/23 Fall risk assessment: 2 + Falls in past year Last assessed Fall Risk: 04/02/23 Dental Screening Dental Screen Date: 04/02/23 Did you have a dental visit in the last 12 months?: No Did you have a dental problem in the last 6 months where you did not have access to dental care?: No Was dental information given to patient?: No [place]PI [place] [facility] [place] a [place] HPI Details Patient comes in today for his [facility] follow up visit He was recently seen at the ER twice earlier this month - first for a stage 2 decubitus sacral ulcer and a few days later after a fall at home Aside from his recent ER visits, he has not been seen since 02/07/2021 (over 2 years ago) He finished his Cephalexin Rx from the ER for his decubitus ulcer a couple of weeks ago and states that his sacral ulcer has been improving a lot and he has been receiving wound care services from [facility] States that he currently feels okay although his family feels that his cognition has been declining lately and he is slowly becoming more and more confused often Patient denies any headaches or dizziness Denies any chest pains, no SOB No nausea/vomiting, no abdominal pain No change in bowel habits noted [facility] Medical History (Updated 10/15/23 @ 05:18 by Andry Quintero MD) T2DM (type 2 diabetes mellitus) Vitamin D deficiency GERD without esophagitis Overweight (BMI 25.0-29.9) Anxiety Diabetes mellitus Pure hypercholesterolemia Benign essential hypertension 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 Seropositive rheumatoid arthritis Surgical History History of hernia surgery Family History Father Diabetes Mother CVD (cardiovascular disease) Social History Housing: House Alcohol intake: never Patient Tobacco Use Status: Former Tobacco user Tobacco use type: Cigarette Cigarettes Per Day: 20 Years Smoked: 15 e-Cigarette/Vaping Use: Never Used Advance Directives Date on File: 10/13/22 service: No Current occupational status: unemployed Current occupational exposures/hazards: No Cognitive needs: No Hearing needs: No Vision needs: No Questionnaire PHQ-9 Over the last 2 weeks, how often have you been bothered by any of the following problems? 1. Little interest or pleasure in doing things: not at all 2. Feeling down, depressed, or hopeless: not at all 3. Trouble falling or staying asleep, or sleeping too much: not at all 4. Feeling tired or having little energy: not at all 5. Poor appetite or overeating: not at all 6. Feeling bad about yourself - or that you are a failure or have let yourself or your family down: not at all 7. Trouble concentrating on things, such as reading the newspaper or watching television: not at all 8. Moving or speaking so slowly that other people could have noticed. Or the opposite - being so fidgety or restless that you have been moving around a lot more than usual: not at all 9. Thoughts that you would be better off or of hurting yourself in some way: not at all Total score: 0 Depression Screening Interpretation: Negative Depression Screening Done: Yes 36071 - PHQ-9 Billing: Yes Source: Developed by Drs. Jerry Sheikh, Tyree Begum and colleagues, with an educational mary from [employer]. Thrive Questionnaire Date Thrive assessed: 04/02/23 I am a: Patient What is your living situation today?: I have a steady place to live Within the past 12 months, did the food you bought not last and you didn't have the money to get more?: Never true Within the past 12 months, did you worry whether your food would run out before you got money to buy more?: Never true Do you have trouble paying for medicines?: No Do you have trouble getting transportation to medical appointments?: No Do you have trouble paying your heating and electricity bill?: No Do you have trouble taking care of your child, family member or friend?: No Do you have trouble with day-to-day activities such as bathing, preparing meals, shopping, managing finances, etc.?: No Are you currently unemployed and looking for a job?: No Are you interested in more education?: No Please select the resources that you would like help with: None Currently or been in a relationship where the following occur: no concerns reported AUDIT C Alcohol Use Questionnaire (AUDIT-C) 1. How often do you have a drink containing alcohol?: Never 3. How often do you have six or more drinks on one occasion?: Never Total Score: 0 Score Reviewed/Action Taken: Yes PAYTON-7 AMB Questionnaire PAYTON-7 Date PAYTON - 7 assessed: 04/02/23 Feeling nervous, anxious, or on edge: 0 = Not at all Not being able to stop or control worryin = Not at all Worrying too much about different things: 0 = Not at all Trouble relaxin = Not at all Being so restless that it is hard to sit still: 0 = Not at all Becoming easily annoyed or irritable: 0 = Not at all Feeling afraid as if something awful might happen: 0 = Not at all Total PAYTON-7 score (0-4 normal; 5-9 mild; 10-14 moderate; 15-21 severe): 0 Source: Developed by Daxa Smith Rivera, Tyree Silva and colleagues, with an educational mary from [employer]. Review of Systems Const Denies chills, Reports fatigue, Denies fever(s), Reports frequent falls and Denies headache(s) ENT Denies dysphagia, Denies otalgia, Denies headache(s), Denies neck pain, Denies odynophagia and Denies sore throat Card Denies chest pain, Denies palpitations and Denies dyspnea Resp Denies cough and Denies dyspnea GI Denies abdominal pain, Denies constipation, Denies dysphagia, Denies heartburn, Denies diarrhea, Denies nausea, Denies odynophagia and Denies vomiting Denies dysuria, Denies nocturia and Denies urinary frequency Musc Denies back pain, Denies arthralgias (controlled on Rx) and Denies neck pain Skin/Breast Denies rash Neuro Reports confusion (at times, per his niece), Reports frequent falls, Denies headache(s) and Reports memory loss Psych Denies anxiety, Reports confusion (at times, per his niece), Denies depression and Reports memory loss Endo Reports fatigue and Denies palpitations Physical exam (Primary Care) Vital Signs: Last Vital Signs Pulse 47 L 04/02/23 14:21 BP 144/82 H 04/02/23 14:21 Pulse Ox 99 04/02/23 14:21 Oxygen Delivery Method Room Air 04/02/23 14:21 BMI result Body Mass Index 25.0 Tobacco/Smoking Status: Tobacco use Status Tobacco use date assessed 04/02/23 04/02/23 14:23 Patient Tobacco Use Status Former Tobacco user 04/02/23 14:23 Tobacco use type Cigarette 04/02/23 14:23 e-Cigarette/Vaping Use Never Used 04/02/23 14:23 Depression Screening Interpretation: Negative Thrive Assessment: Date of Thrive Assessment Date Thrive assessed 04/02/23 04/02/23 14:23 Currently or been in a relationship where the following occur: no concerns reported Const General: confusion (at times, per his niece) Orientation/consciousness: confusion (at times, per his niece) HENMT Ears: TM's normal bilaterally and EAC's normal Throat: Yes posterior oropharynx normal and Yes tonsils normal (no TP congestion) Neck Neck: Yes no lymphadenopathy and Yes supple Thyroid: Thyroid normal Resp Auscultation: clear to auscultation bilaterally, no rales and no wheezes Cardio Rate: regular rate Rhythm: regular rhythm Heart sounds: no murmurs GI Palpation (GI): Soft to palpation and nontender Auscultation: normal bowel sounds General: Yes no CVA tenderness Back/Spine/Pelvis Back: no CVA tenderness Thoracic/Lumbar Spine: kyphosis (mild) and No lumbar spinal tenderness Skin Rashes: no rashes Neuro General: confusion (at times, per his niece) Extrem Other: (+) rheumatoid nodules noted on a few fingers on both hands General: Yes full ROM, No clubbing, No cyanosis and Yes pedal edema (trace, bilateral) Results AMB Hemoglobin A1c AMB Hemoglobin A1c 5.8 % Last Edit by MAGDI Urbina on 04/02/23 15:28 Results Reviewed Results Reviewed: Laboratory Last Values Hgb A1c (Clinic) 5.8 % (4.0-6.0) 04/02/23 15:26 Assessment and Plan Assessment & Plan (1) Rheumatoid arthritis: Code(s): M06.9 - Rheumatoid arthritis, unspecified Qualifiers: Rheumatoid arthritis location: unspecified site Rheumatoid factor presence: with rheumatoid factor Qualified Code(s): M05.9 - Rheumatoid arthritis with rheumatoid factor, unspecified Plan: Patient currently remains on Methotrexate 2.5 mg 6 tablets (15 mg) once a week and Folic Acid 1 mg QD He was seen by rheumatology in the past but has not seen them since last year (2021) I have advised patient that he needs to go back and follow up with rheumatology for his RA as they are the ones managing his condition and should also be the ones prescribing and refilling his meds for his RA Patient continues to take Acetaminophen PRN for his joint pains (2) Benign essential hypertension: Code(s): I10 - Essential (primary) hypertension Plan: Reinforced low sodium diet - goal is systolic BP of at least 130 to 140 mm or less Continue Lisinopril 5 mg QD (3) Diabetes mellitus: Code(s): E11.9 - Type 2 diabetes mellitus without complications Qualifiers: Diabetes mellitus type: type 2 Diabetes mellitus alf insulin use: without alf use Diabetes mellitus complication status: without complication Qualified Code(s): E11.9 - Type 2 diabetes mellitus without complications Plan: In-office HgbA1c done today is at 5.8% - goal is at least <7.0% but ideally <6.5% Reinforced diabetic diet Continue Metformin 500 mg BID (4) Pure hypercholesterolemia: Code(s): E78.00 - Pure hypercholesterolemia, unspecified Plan: Reinforced low cholesterol diet Patient has not had any follow up labs done recently Continue Simvastatin 20 mg QD Will recheck his labs and fasting lipids in 3 months for follow up (5) GERD without esophagitis: Code(s): K21.9 - Gastro-esophageal reflux disease without esophagitis Plan: Dietary restrictions reinforced Continue Omeprazole 20 mg QD (6) Vitamin D deficiency: Code(s): E55.9 - Vitamin D deficiency, unspecified Plan: Continue Vitamin D3 1000 units QD (7) BPH (benign prostatic hyperplasia): Code(s): N40.0 - Benign prostatic hyperplasia without lower urinary tract symptoms Qualifiers: Lower urinary tract symptom presence: symptoms present Lower urinary tract symptom detail: urinary frequency Qualified Code(s): N40.1 - Benign prostatic hyperplasia with lower urinary tract symptoms; R35.0 - Frequency of micturition Plan: Continue Terazosin 5 mg Q HS Follow up with urology as scheduled (8) Cognitive impairment: Code(s): R41.89 - Other symptoms and signs involving cognitive functions and awareness Plan: Will refer him to neurology for further evaluation and management of his reportedly declining cognition, per his family (9) Anxiety: Code(s): F41.9 - Anxiety disorder, unspecified Plan: Continue Lorazepam 0.5 mg QD PRN (10) Overweight (BMI 25.0-29.9): Code(s): E66.3 - Overweight Plan: Reinforced diet; exercise and weight loss are impractical nor realistic at this point, given patient's declining cognition and also his unsteady gain/frequent falls lately Plan Follow up in 3 months Orders: Orders AMB Hemoglobin A1c 04/02/23 Z13.9 - Encounter for screening, unspecified Referrals Neurology Referral R41.89 - Other symptoms and signs involving cognitive functions and awareness Coding Level of Care Code Est Pt Level 4 (41613) Diagnoses Rheumatoid arthritis with positive rheumatoid factor, involving unspecified site M05.9 Rheumatoid arthritis location: unspecified site Rheumatoid factor presence: with rheumatoid factor Benign essential hypertension I10 Type 2 diabetes mellitus without complication, without long-term current use of insulin E11.9 Diabetes mellitus type: type 2 Diabetes mellitus private secretary insulin use: without private secretary use Diabetes mellitus complication status: without complication Pure hypercholesterolemia E78.00 GERD without esophagitis K21.9 Vitamin D deficiency E55.9 Benign prostatic hyperplasia with urinary frequency N40.1; R35.0 Lower urinary tract symptom presence: symptoms present Lower urinary tract symptom detail: urinary frequency Cognitive impairment R41.89 Anxiety F41.9 Overweight (BMI 25.0-29.9) E66.3
[2023-04-02 14:21] VITALS: BP 144/82; PULSE 47; O2SAT 99; BMI 25.0
== END 2023-04-02 15:36 | disposition home or self-care (01) ==
PROVIDERS: PCP Internal Medicine; Visit Provider Internal Medicine
DX: M05.9 Rheumatoid arthritis with rheumatoid factor, unspecified (principal); I10 Essential (primary) hypertension; E11.9 Type 2 diabetes mellitus without complications; E78.00 Pure hypercholesterolemia, unspecified; K21.9 Gastro-esophageal reflux disease without esophagitis; E55.9 Vitamin D deficiency, unspecified; N40.1 Benign prostatic hyperplasia with lower urinary tract symptoms; R35.0 Frequency of micturition; R41.89 Other symptoms and signs involving cognitive functions and awareness; F41.9 Anxiety disorder, unspecified; E66.3 Overweight
CPT/HCPCS: 99214

== ENCOUNTER 2023-07-10 09:49 | Outpatient (AMB) | payer MEDICARE, MEDICAID, SELFPAY ==
[2023-07-10 09:53] VITALS: BP 124/80; PULSE 70; O2SAT 92; BMI 27.2
--- NOTE | 2023-07-10 09:53 | A.OFFPC_ITS ---
Vital Signs 07/10/23 09:53 Height 5 ft 10 in Weight 189 lb 9.561 oz BMI 27.2 BP 124/80 Blood Pressure Location Lt brachial Position Sitting Pulse 70 Pulse Source Pulse Oximeter Pulse Oximetry (%) 92 Oxygen Delivery Method Room Air Intake Visit Reasons: 3mth [id number] neuro referral Desktop Publishing Specialist Required: No Accompanied by: niece Allergies hydrocodone [From VICODIN] Allergy (Intermediate, Verified 09/18/23 11:01) Vomiting Hydrocodone-Acetaminophen Allergy (Intermediate, Uncoded 09/18/23 11:01) vomiting, dizziness Medication List - Last Reconciled 07/10/23 by Andry Quintero MD acetaminophen (Tylenol) 325 mg PO QID PRN blood sugar diagnostic (FreeStyle Lite Strips) TEST BLOOD SUGAR DAILY blood sugar diagnostic (Probiodrug Blood Glucose System strips) As directed once a day blood-glucose meter (Probiodrug Blood Glucose System) As directed once a day cholecalciferol (vitamin D3) 25 mcg PO DAILY 90 days flash glucose scanning reader (Gymtrack Britt 14 Day [place]) As directed flash glucose sensor (ZopaStyle Britt 14 Day Sensor kit) As directed folic acid 1 mg PO DAILY 90 days lancets (TRUEplus Lancets) 33 gauge miscellaneous DAILY lancets (Embrace Lancets) As directed once a day lidocaine 4% (Aspercreme (lidocaine)) 1 patch topical DAILY PRN lisinopril 5 mg PO DAILY 90 days lorazepam 0.5 mg PO DAILY 30 days metformin 500 mg PO BID methotrexate sodium 15 mg (6 x 2.5 mg) PO QWEEK omeprazole 20 mg PO DAILY simvastatin 20 mg PO BEDTIME terazosin 5 mg PO BEDTIME 90 days Tobacco use date assessed: 07/10/23 Fall risk assessment: 2 + Falls in past year Last assessed Fall Risk: 07/10/23 Dental Screening Dental Screen Date: 07/10/23 Did you have a dental visit in the last 12 months?: No Did you have a dental problem in the last 6 months where you did not have access to dental care?: No Was dental information given to patient?: No HPI 3mth f/[id number]-sdkopzs neuro referral HPI Details Patient comes in today for his follow up visit He appears quite confused today and is argumentative about everything that he is being told or advised about Patient reportedly fell about 3 weeks ago and currently has a hard and swollen area over his right TMJ He is unable to provide any details about his fall and whether he hit his head or not; is unable to tell us if he hurt himself or sustain any injury and the swollen area over his right TMJ area is the only pertinent finding that we can see at present He has been referred to neurology recently for consultation regarding his declining memory and cognition but he refused to see Dr. Dove and has asked to be rescheduled We have also previously referred him to rheumatology for his RA but per his niece, he also refused to see them Feels that he is doing okay and he does not need to keep going around and seeing so many doctors He denies any headaches or dizziness Denies any chest pains, no SOB No nausea/vomiting, no abdominal pain No change in bowel habits noted [facility] Medical History (Updated 10/15/23 @ 05:18 by Andry Quintero MD) T2DM (type 2 diabetes mellitus) Vitamin D deficiency GERD without esophagitis Overweight (BMI 25.0-29.9) Anxiety Diabetes mellitus Pure hypercholesterolemia Benign essential hypertension 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 Seropositive rheumatoid arthritis Surgical History History of hernia surgery Family History Father Diabetes Mother CVD (cardiovascular disease) Social History Housing: House Alcohol intake: never Patient Tobacco Use Status: Former Tobacco user Tobacco use type: Cigarette Cigarettes Per Day: 20 Years Smoked: 15 e-Cigarette/Vaping Use: Never Used Advance Directives Date on File: 10/13/22 service: No Current occupational status: unemployed Current occupational exposures/hazards: No Cognitive needs: No Hearing needs: No Vision needs: No Questionnaire PHQ-9 Over the last 2 weeks, how often have you been bothered by any of the following problems? 1. Little interest or pleasure in doing things: not at all 2. Feeling down, depressed, or hopeless: not at all 3. Trouble falling or staying asleep, or sleeping too much: not at all 4. Feeling tired or having little energy: not at all 5. Poor appetite or overeating: not at all 6. Feeling bad about yourself - or that you are a failure or have let yourself or your family down: not at all 7. Trouble concentrating on things, such as reading the newspaper or watching television: not at all 8. Moving or speaking so slowly that other people could have noticed. Or the opposite - being so fidgety or restless that you have been moving around a lot more than usual: not at all 9. Thoughts that you would be better off or of hurting yourself in some way: not at all Total score: 0 Depression Screening Interpretation: Negative Depression Screening Done: Yes 50446 - PHQ-9 Billing: Yes Source: Developed by Drs. Jerry Sheikh, Daxa Stafford, Tyree Silva and colleagues, with an educational mary from [employer]. Thrive Questionnaire Date Thrive assessed: 07/10/23 I am a: Patient What is your living situation today?: I have a steady place to live Within the past 12 months, did the food you bought not last and you didn't have the money to get more?: Never true Within the past 12 months, did you worry whether your food would run out before you got money to buy more?: Never true Do you have trouble paying for medicines?: No Do you have trouble getting transportation to medical appointments?: No Do you have trouble paying your heating and electricity bill?: No Do you have trouble taking care of your child, family member or friend?: No Do you have trouble with day-to-day activities such as bathing, preparing meals, shopping, managing finances, etc.?: No Are you currently unemployed and looking for a job?: No Are you interested in more education?: No Please select the resources that you would like help with: None Currently or been in a relationship where the following occur: no concerns reported THRIVE Score: 0 AUDIT C Alcohol Use Questionnaire (AUDIT-C) 1. How often do you have a drink containing alcohol?: Never 3. How often do you have six or more drinks on one occasion?: Never Total Score: 0 Score Reviewed/Action Taken: Yes PAYTON-7 AMB Questionnaire PAYTON-7 Date PAYTON - 7 assessed: 07/10/23 Feeling nervous, anxious, or on edge: 0 = Not at all Not being able to stop or control worryin = Not at all Worrying too much about different things: 0 = Not at all Trouble relaxin = Not at all Being so restless that it is hard to sit still: 0 = Not at all Becoming easily annoyed or irritable: 0 = Not at all Feeling afraid as if something awful might happen: 0 = Not at all Total PAYTON-7 score (0-4 normal; 5-9 mild; 10-14 moderate; 15-21 severe): 0 Source: Developed by Drs. Jerry Sheikh, Daxa Stafford, Tyree Silva and colleagues, with an educational mary from [employer]. Review of Systems Const Denies chills, Reports fatigue, Denies fever(s), Reports frequent falls and Denies headache(s) ENT Denies dysphagia, Denies otalgia, Denies headache(s), Denies neck pain, Denies odynophagia and Denies sore throat Card Denies chest pain, Denies palpitations and Denies dyspnea Resp Denies cough and Denies dyspnea GI Denies abdominal pain, Denies constipation, Denies dysphagia, Denies heartburn, Denies diarrhea, Denies nausea, Denies odynophagia and Denies vomiting Denies dysuria, Denies nocturia and Denies urinary frequency Musc Denies back pain, Denies arthralgias (controlled on Rx) and Denies neck pain Skin/Breast Denies rash Neuro Reports confusion (at times, per his niece), Reports frequent falls, Denies headache(s) and Reports memory loss Psych Denies anxiety, Reports confusion (at times, per his niece), Denies depression a nd Reports memory loss Endo Reports fatigue and Denies palpitations Physical exam (Primary Care) Vital Signs: Last Vital Signs Pulse 70 07/10/23 09:53 BP 124/80 07/10/23 09:53 Pulse Ox 92 07/10/23 09:53 Oxygen Delivery Method Room Air 07/10/23 09:53 BMI result Body Mass Index 27.2 Tobacco/Smoking Status: Tobacco use Status Tobacco use date assessed 07/10/23 07/10/23 10:01 Patient Tobacco Use Status Former Tobacco user 07/10/23 10:01 Tobacco use type Cigarette 07/10/23 10:01 e-Cigarette/Vaping Use Never Used 07/10/23 10:01 PHQ-9: PHQ-9 Score PHQ-9: Total score 0 07/10/23 10:58 Depression Screening Interpretation: Negative Thrive Assessment: Date of Thrive Assessment Date Thrive assessed 07/10/23 07/10/23 10:01 Currently or been in a relationship where the following occur: no concerns reported Const General: no acute distress, alert and confusion (at times, per his niece) Orientation/consciousness: confusion (at times, per his niece) HENMT Ears: TM's normal bilaterally and EAC's normal Throat: Yes posterior oropharynx normal and Yes tonsils normal (no TP congestion) Neck Neck: Yes no lymphadenopathy and Yes supple Thyroid: Thyroid normal Resp Auscultation: clear to auscultation bilaterally, no rales and no wheezes Cardio Rate: regular rate Rhythm: regular rhythm Heart sounds: no murmurs GI Palpation (GI): Soft to palpation and nontender Auscultation: normal bowel sounds General: Yes no CVA tenderness Back/Spine/Pelvis Back: no CVA tenderness Thoracic/Lumbar Spine: kyphosis (mild) and No lumbar spinal tenderness Skin Rashes: no rashes Neuro General: confusion (at times, per his niece) Extrem Other: (+) rheumatoid nodules noted on a few fingers on both hands General: Yes full ROM, No clubbing, No cyanosis and Yes pedal edema (trace, bilateral) Assessment and Plan Assessment & Plan (1) Rheumatoid arthritis: Code(s): M06.9 - Rheumatoid arthritis, unspecified Qualifiers: Rheumatoid arthritis location: unspecified site Rheumatoid factor presence: with rheumatoid factor Qualified Code(s): M05.9 - Rheumatoid arthritis with rheumatoid factor, unspecified Plan: Patient currently remains on Methotrexate 2.5 mg 6 tablets (15 mg) once a week and Folic Acid 1 mg QD He was seen by rheumatology in the past but has not seen them since 2021 I have advised patient that he needs to go back and follow up with rheumatology for his RA - advised that this is NOT OPTIONAL and if he does not agree to go back and follow up with rheumatology for his rheumatoid arthritis, I am NOT going to continue to refill his Methotrexate indefinitely Referral to rheumatology placed again today Patient continues to take Acetaminophen PRN for his joint pains (2) Mandibular mass: Code(s): R22.0 - Localized swelling, mass and lump, head Plan: Will send him for x-rays of the mandible for further evaluation of the current swelling that he has over his right TMJ area He reportedly fell a few weeks ago but is unable to provide any details r egarding his fall and other that the swelling near his right jaw area, he does not appear to have any other noticeable injuries at present (3) Benign essential hypertension: Code(s): I10 - Essential (primary) hypertension Plan: Reinforced low sodium diet - goal is systolic BP of at least 130 to 140 mm or less Continue Lisinopril 5 mg QD (4) Diabetes mellitus: Code(s): E11.9 - Type 2 diabetes mellitus without complications Qualifiers: Diabetes mellitus type: type 2 Diabetes mellitus mcfp insulin use: without mcfp use Diabetes mellitus complication status: without complication Qualified Code(s): E11.9 - Type 2 diabetes mellitus without complications Plan: In-office HgbA1c was at 5.8% when previously checked in March 2023 - goal is at least <7.0% but ideally <6.5% Reinforced diabetic diet Continue Metformin 500 mg BID (5) Pure hypercholesterolemia: Code(s): E78.00 - Pure hypercholesterolemia, unspecified Plan: Reinforced low cholesterol diet Patient has not had any follow up labs done recently Continue Simvastatin 20 mg QD Will recheck his labs and fasting lipids in 4 months for follow up (6) GERD without esophagitis: Code(s): K21.9 - Gastro-esophageal reflux disease without esophagitis Plan: Dietary restrictions reinforced Continue Omeprazole 20 mg QD (7) Vitamin D deficiency: Code(s): E55.9 - Vitamin D deficiency, unspecified Plan: Continue Vitamin D3 1000 units QD (8) BPH (benign prostatic hyperplasia): Code(s): N40.0 - Benign prostatic hyperplasia without lower urinary tract symptoms Qualifiers: Lower urinary tract symptom presence: symptoms present Lower urinary tract symptom detail: urinary frequency Qualified Code(s): N40.1 - Benign prostatic hyperplasia with lower urinary tract symptoms; R35.0 - Frequency of micturition Plan: Continue Terazosin 5 mg Q HS Follow up with urology as scheduled (9) Cognitive impairment: Code(s): R41.89 - Other symptoms and signs involving cognitive functions and awareness Plan: He has been previously referred to neurology for further evaluation but patient has refused to see Dr. Dove He is advised to call the neurology office to reschedule his appt to an alternative doctor (10) Anxiety: Code(s): F41.9 - Anxiety disorder, unspecified Plan: Continue Lorazepam 0.5 mg QD PRN (11) Overweight (BMI 25.0-29.9): Code(s): E66.3 - Overweight Plan: Reinforced diet; exercise and weight loss are impractical nor realistic at this point, given patient's declining cognition and also his unsteady gain/frequent falls lately Plan Follow up in 4 months Orders: Orders Vitamin D 25-OH Total 4 Months E55.9 - Vitamin D deficiency, unspecified, M06.9 - Rheumatoid arthritis, unspecified Rheumatoid Factor 4 Months M06.9 - Rheumatoid arthritis, unspecified Microalbumin, Random (w Creat) 4 Months E11.9 - Type 2 diabetes mellitus without complications XR TMJ BI 07/10/23 R22.0 - Localized swelling, mass and lump, head Complete Blood Count Auto Diff 4 Months D64.9 - Anemia, unspecified, M06.9 - Rheumatoid arthritis, unspecified Comprehensive [place]. Panel Fast 4 Months E78.00 - Pure hypercholesterolemia, unspecified, M06.9 - Rheumatoid arthritis, unspecified Lipid Panel 4 Months E78.00 - Pure hypercholesterolemia, unspecified, M06.9 - Rheumatoid arthritis, unspecified TSH reflex Free T4 4 Months E78.00 - Pure hypercholesterolemia, unspecified, M06.9 - Rheumatoid arthritis, unspecified UA CC w/rflx Micro + Cult 4 Months R30.0 - Dysuria, M06.9 - Rheumatoid arthritis, unspecified Erythrocyte Sedimentation Rate 4 Months M79.7 - Fibromyalgia, M06.9 - Rheumatoid arthritis, unspecified Hemoglobin A1c 4 Months E11.9 - Type 2 diabetes mellitus without complications Referrals Rheumatology Referral M06.9 - Rheumatoid arthritis, unspecified Coding Level of Care Code Est Pt Level 4 (68120) Diagnoses Rheumatoid arthritis with positive rheumatoid factor, involving unspecified site M05.9 Rheumatoid arthritis location: unspecified site Rheumatoid factor presence: with rheumatoid factor Mandibular mass R22.0 Benign essential hypertension I10 Type 2 diabetes mellitus without complication, without long-term current use of insulin E11.9 Diabetes mellitus type: type 2 Diabetes mellitus mcfp insulin use: without terminal make up operator use Diabetes mellitus complication status: without complication Pure hypercholesterolemia E78.00 GERD without esophagitis K21.9 Vitamin D deficiency E55.9 Benign prostatic hyperplasia with urinary frequency N40.1; R35.0 Lower urinary tract symptom presence: symptoms present Lower urinary tract symptom detail: urinary frequency Cognitive impairment R41.89 Anxiety F41.9 Overweight (BMI 25.0-29.9) E66.3
== END 2023-07-10 11:01 | disposition home or self-care (01) ==
PROVIDERS: PCP Internal Medicine; Visit Provider Internal Medicine
DX: M05.9 Rheumatoid arthritis with rheumatoid factor, unspecified (principal); R22.0 Localized swelling, mass and lump, head; I10 Essential (primary) hypertension; E11.9 Type 2 diabetes mellitus without complications; E78.00 Pure hypercholesterolemia, unspecified; K21.9 Gastro-esophageal reflux disease without esophagitis; E55.9 Vitamin D deficiency, unspecified; N40.1 Benign prostatic hyperplasia with lower urinary tract symptoms; R35.0 Frequency of micturition; R41.89 Other symptoms and signs involving cognitive functions and awareness; F41.9 Anxiety disorder, unspecified; E66.3 Overweight
CPT/HCPCS: 99214

== ENCOUNTER 2023-07-10 11:20 | Outpatient (REF) | payer MEDICARE, MEDICAID, SELFPAY ==
--- NOTE | ~2023-07-10 | XR_ITS ---
EXAMINATION: XR TEMPOROMANDIBULAR JOINT, BILATERAL CLINICAL INFORMATION: Pain and swelling can the right TMJ COMPARISON: None available. TECHNIQUE: 2 views of each TMJ FINDINGS: There are no fractures or dislocations. No bone, joint or soft tissue abnormality is demonstrated. XR/XR TMJ BI IMPRESSION: Unremarkable examination. If clinically indicated follow-up by CT scan or MRI
== END 2023-07-10 11:21 | disposition home or self-care (01) ==
LOC: HO.XRAY 11:20
PROVIDERS: PCP Internal Medicine; Visit Provider Internal Medicine
DX: R22.0 Localized swelling, mass and lump, head (principal)
CPT/HCPCS: 70330

== ENCOUNTER 2023-08-08 12:38 | Outpatient (REF) | payer MEDICARE, MEDICAID, SELFPAY ==
[2023-08-08 12:59] LABS: MANUAL DIFF FLAG NO
[2023-08-08 13:14] LABS: Basophils Percent Auto 0.5 % (0-2); Eosinophils Absolute Auto 0.1 X10*3/uL (0.0-0.4); Eosinophils Percent Auto 0.6 % (0-4); Hematocrit 40.8 % (42.0-52.0); Hemoglobin 13.7 g/dl (14.0-18.0); Imm Gran Abs Auto 0.03 X10*3/uL (0.00-0.03); Imm Gran Pct Auto 0.4 % (0.0-0.4); Lymphocytes Absolute Auto 1.1 X10*3/uL (1.2-4.9); Lymphocytes Percent Auto 13.4 % (20-40); Mean Corpuscular HGB Conc 33.6 g/dl (31.0-36.0); Mean Corpuscular Hemoglobin 30.6 pg (27.0-33.0); Mean Corpuscular Volume 91.3 fL (80.0-98.0); Mean Platelet Volume 11.2 fL (9.4-12.4); Monocytes Absolute Auto 0.2 X10*3/uL (0.1-1.2); Neutrophils Absolute Auto 7.1 x10*3/uL (2.0-8.3); Neutrophils Percent Auto 83.1 % (45-73); Platelet Count 239 X10*3/uL (160-400); Red Blood Count 4.47 X10*6/uL (4.60-5.80); Red Cell Distribution Width 13.9 % (11.0-16.0); White Blood Count 8.5 X10*3/uL (4.8-10.8)
[2023-08-08 13:41] LABS: Alanine Aminotransferase 7 U/L (0-40); Albumin Level 4.1 g/dL (3.5-5.0); Alkaline Phosphatase 87 U/L (39-117); Anion Gap 13 (12-20); Aspartate Amino Transferase 14 U/L (5-37); Bilirubin Total 0.5 mg/dL (0.0-1.0); Blood Urea Nitrogen 19 mg/dL (9-16); C Reactive Protein 1.49 mg/dL (< or = 0.50); Calcium 9.6 mg/dL (8.4-10.2); Carbon Dioxide 27 mmol/L (22-29); Chloride 102 mmol/L (96-108); Estimated Glomerular Filt Rate > 60; Glucose Random 144 mg/dL (60-115); Potassium 3.8 mmol/L (3.3-5.1); Sodium 138 mmol/L (135-145); Total Protein 7.5 g/dL (6.5-8.0)
[2023-08-08 13:55] LABS: Erythrocyte Sedimentation Rate 25 MM/HR (0-15)
[2023-08-08 18:19] LABS: Uric Acid 6.2 mg/dL (3.4-7.0)
[2023-08-09 01:21] LABS: Rheumatoid Factor 551.8 IU/mL (<15.0)
[2023-08-09 20:54] LABS: Cyclic Citrullinated Peptide >250 UNITS
[2023-08-11 13:53] LABS: IgA 298 mg/dL (70-320); IgG 1293 mg/dL (600-1540); IgM 119 mg/dL (50-300)
[2023-08-15 15:24] LABS: Anti Nuclear Antibody Screen NEGATIVE (NEGATIVE)
== END 2023-08-08 12:39 | disposition home or self-care (01) ==
LOC: HO.LAB 12:38
PROVIDERS: PCP Internal Medicine; Visit Provider Nurse Practitioner Family
DX: M05.9 Rheumatoid arthritis with rheumatoid factor, unspecified (principal); Z79.899 Other long term (current) drug therapy
CPT/HCPCS: 36415; 80053; 82550; 82784; 84550; 85025; 85652; 86038; 86140; 86200; 86431

== ENCOUNTER 2023-08-14 10:38 | Outpatient (AMB) | payer MEDICARE, MEDICAID, SELFPAY ==
--- NOTE | 2023-08-14 10:40 | MHC.OFFVIS ---
Intake Vital Signs 08/14/23 10:41 Height 5 ft 10 in Weight 185 lb 3.013 oz BMI 26.6 BP 102/54 L Blood Pressure Location Rt brachial Position Sitting Pulse 84 Pulse Source Pulse Oximeter Temp 97.5 F Temp Source Skin Pulse Oximetry (%) 100 Oxygen Delivery Method Room Air Intake Visit Reasons: RA Intake Note: Patient last seen 01/24/22 by Beverly, presents today for follow up. MTX started at last visit. Last filled by PCP. Reports no new concerns. 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 Ford 86 yoM presents for follow-up of Seropositive RA (RF++ CCP++). Last seen in January 2022. He has returned to Rheumatology care at the insistence of PCP. Today he is accompanied by his niece Dana. He was recently moved in to live with Dana and her family because he has been missing doctor appointments. He remains on MTX 6 tabs weekly and folic acid daily. Patient says he is tolerating the medications. Patient denies any joint pain, morning stiffness or joint swelling today. Prior visit 01/24/2022 Suzy 86 yoM presents for follow-up of Seropositive RA (RF++ CCP++). Last seen in October 2021. On MTX 6 tabs weekly and folic acid daily. Tolerating medications. Patient denies any joint pain, morning stiffness or joint swelling today. He states that his rheumatoid arthritis symptoms are stable. He reports that he has continued to fall intermittently over the last year. Patient reports at this point he has not been seriously injured or sought medical evaluation after falls. He continues to cook his own meals and transportation remains a barrier for care due to his eyesight and inability to drive. He is due for labs and will complete them today. He reports that he does have some help at home and has enough food to eat. In November patient was found to have elevated PTH intact, he declined referral to endocrinology. Consult was placed just in case he changed his mind and his PCP was notified. He reports that he uses Aspercreme for any generalized intermittent pain, he feels the Aspercreme works well. 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 Seropositive rheumatoid arthritis Surgical History History of hernia surgery Family History Father Diabetes Mother CVD (cardiovascular disease) Social History Housing: House Alcohol intake: never Patient Tobacco Use Status: Former Tobacco user Tobacco use type: Cigarette Cigarettes Per Day: 20 Years Smoked: 15 e-Cigarette/Vaping Use: Never Used Advance Directives Date on File: 10/13/22 service: No Current occupational status: unemployed Current occupational exposures/hazards: No Cognitive needs: No Hearing needs: No Vision needs: No Review of Systems Const All systems reviewed & are unremarkable except as noted in HPI and below Physical Exam Vital Signs: Last Vital Signs Temp 97.5 F 08/14/23 10:41 Pulse 84 08/14/23 10:41 BP 102/54 L 08/14/23 10:41 Pulse Ox 100 08/14/23 10:41 Oxygen Delivery Method Room Air 08/14/23 10:41 BMI result Body Mass Index 26.6 APPEARANCE: Patient in no acute distress, groomed EYES no redness, eyelids normal EARS: External ear normal NOSE/SINUS: Airflow through both nares, no nasal discharge, no bleeding HEART: Regular rhythm, S1-S2 heard, no murmurs, rubs or gallops. LUNG: Clear to auscultation throughout bilaterally. Respiratory rate regular nonlabored. EXTREMITIES: Very slight lower extremity edema, no calf tenderness, normal peripheral pulses. NEURO: Oriented and alert x3. No focal weakness. Gait normal for patient SKIN: No inflammatory or neoplastic lesions. Normal color and turgor JOINT EXAM:?? Cervical Spine: Full range of motion without pain; no tenderness. Thoracic Spine:.? Kyphotic.? No tenderness on palpation. Lumbar Spine:? No tenderness. Hands: LEFT:? Normal pain-free range of motion without tenderness, swelling, increased warmth or erythema. Bony enlargement of the 1st MCP and IP joint. Able to make a full fist and has a good assembler fluorescent lights strength. Small, firm, nontender, well-demarcated, mobile nodule on the palmar surface of the thumb. Small, firm, well-demarcated, nontender, mobile, nodule noted on the dorsal aspect of the 3rd PIP-nodules consistent with rheumatoid nodules. RIGHT: Normal pain free range of motion without tenderness,swelling, increased warmth or erythema. Bony enlargement of the 1st MCP and IP joints. Able to make a full fist and has good assembler fluorescent lights strength. Moderate size, firm, nontender, well-demarcated mobile nodule on the palmar surface of the thumb, consistent with rheumatoid nodule. Wrists:? Normal pain-free range of motion without tenderness, swelling, increased warmth or erythema. Elbows: Normal pain-free range of motion without tenderness, swelling, increased warmth or erythema. Shoulders:?? Full range of motion without pain. No tenderness, weakness, swelling, increased warmth or erythema. Hip bursa:? No tenderness. Knees:?? Normal pain-free range of motion without tenderness, swelling, increased warmth or erythema.? There is no effusion or crepitation. Ankles:? Right: Normal pain-free range of motion without tenderness, swelling, increased warmth or erythema. Left: Warm, bony enlarged, swelling. No pain and Nontender per patient Feet:? Normal pain-free range of motion without tenderness, swelling, increased warmth or erythema. Great toenail long bilaterally. Results Reviewed Results Reviewed: Laboratory Tests 08/08/23 12:57 WBC 8.5 RBC 4.47 L Hgb 13.7 L Hct 40.8 L Neut % (Auto) 83.1 H Lymph % (Auto) 13.4 L Lymph # (Auto) 1.1 L ESR 25 H Creatinine 1.15 Estimated GFR > 60 Uric Acid 6.2 AST 14 ALT 7 Alkaline Phosphatase 87 Total Creatine Kinase 37 L Total Protein 7.5 Albumin 4.1 IgG Total 1293 IgA Total 298 IgM 119 Rheumatoid Factor 551.8 H Cycl Citrul Peptide IgG >250 H Assessment & Plan Assessment & Plan (1) Seropositive rheumatoid arthritis: Code(s): M05.9 - Rheumatoid arthritis with rheumatoid factor, unspecified (2) USP methotrexate user: Code(s): Z79.899 - Other mcc (current) drug therapy Plan: Side effects of methotrexate were discussed with the patient in detail including oral ulcers, elevated LFTs, abdominal discomfort, and possible pancytopenia is.? Will monitor patient? for side effects with frequent lab work. Advised patient to take folic acid daily to prevent complications of methotrexate (3) T2DM (type 2 diabetes mellitus): Code(s): E11.9 - Type 2 diabetes mellitus without complications Qualifiers: Diabetes mellitus terminal worker insulin use: without terminal worker use Diabetes mellitus complication status: without complication Qualified Code(s): E11.9 - Type 2 diabetes mellitus without complications Plan #Seropositve RA (RF++ CCP++) the patient continues on MTX 6 tabs weekly and folic acid daily, tolerating both meds well.? No active hand synovitis on exam today, his findings are more consistent with chronic deformities.? However there is swelling and warmth to his right ankle. Patient denies tenderness and pain but I think this may be active RA. I will prescribe a course of prednisone and reassess. I discussed with both patient and knees to monitor blood sugars on prednisone. He is currently on metformin for T2DM. He will continue his methotrexate dose and continue taking folic acid daily. #Long-term use: Monitoring labs are stable. Transportation was a barrier for this patient. Now that he is moved in with his knees this should no longer be an issue as she progresses to take him to his lab work and appointment. Continue current methotrexate dose. He will follow-up in the office in 3 months with labs or sooner if needed. F/U 1 month I spent 40 minutes reviewing history, evaluating patient and documenting. Orders: Orders Creatine Kinase Total Today M05.9 - Rheumatoid arthritis with rheumatoid factor, unspecified Erythrocyte Sedimentation Rate Today M05.9 - Rheumatoid arthritis with rheumatoid factor, unspecified C Reactive Protein Today M05.9 - Rheumatoid arthritis with rheumatoid factor, unspecified Medications: New prednisone 3 tablets per day x 7 days 2 tablets per day x 7 days then 1 tablet per day x 7 days stop 60 tabs 0RF M05.9 - Rheumatoid arthritis with rheumatoid factor, unspecified Changed From methotrexate sodium ONE TIME Rx ONLY. 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
[2023-08-14 10:41] VITALS: BP 102/54; PULSE 84; TEMP 36.4; O2SAT 100; BMI 26.6
== END 2023-08-14 11:28 | disposition home or self-care (01) ==
PROVIDERS: PCP Internal Medicine; Visit Provider Nurse Practitioner Family
DX: M05.79 Rheumatoid arthritis with rheumatoid factor of multiple sites without organ or systems involvement (principal); E11.9 Type 2 diabetes mellitus without complications; Z79.899 Other long term (current) drug therapy
CPT/HCPCS: 99214

== ENCOUNTER → 2023-08-14 10:38 | Outpatient (BNVA) | payer MEDICARE, MEDICAID, SELFPAY | PROVIDERS: PCP Internal Medicine; Visit Provider Nurse Practitioner Family | DX: M05.9 Rheumatoid arthritis with rheumatoid factor, unspecified (principal); E11.9 Type 2 diabetes mellitus without complications; Z79.899 Other long term (current) drug therapy | CPT/HCPCS: 36415; 82550; 85652; 86140; 99212 ==

== ENCOUNTER 2023-08-14 11:32 | Outpatient (REF) | payer MEDICARE, MEDICAID, SELFPAY ==
[2023-08-14 14:09] LABS: Erythrocyte Sedimentation Rate 25 MM/HR (0-15)
[2023-08-14 14:29] LABS: C Reactive Protein 1.72 mg/dL (< or = 0.50)
== END 2023-08-14 11:33 | disposition home or self-care (01) ==
LOC: HO.10HDL 11:32
PROVIDERS: Visit Provider Nurse Practitioner Family
DX: Z13.89 Encounter for screening for other disorder (principal)
CPT/HCPCS: 36415; 82550; 85652; 86140

== ENCOUNTER 2023-09-18 10:45 | Outpatient (AMB) | payer MEDICARE, MEDICAID, SELFPAY ==
--- NOTE | 2023-09-18 10:57 | A.OFFVIS_ITS ---
Intake Vital Signs 09/18/23 11:02 Height 5 ft 10 in Weight 192 lb 10.944 oz BMI 27.6 BP 132/58 L Blood Pressure Location Rt brachial Position Sitting Pulse 104 H Pulse Source Pulse Oximeter Pulse Oximetry (%) 94 Oxygen Delivery Method Room Air Intake Visit Reasons: RA/Left ankle swelling/cm Intake Note: Patient last seen 08/14/23, presents today for follow up and test results. 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 Ford 86 yoM presents for follow-up of Seropositive RA (RF++ CCP++). Last seen in August 2023. Today he is accompanied by his niece Dana. He has been doing well since last visit and his ankle as helped by the prednisone. He remains on MTX 6 tabs weekly and folic acid daily. Patient says he is tolerating the medications. Patient denies any joint pain, morning stiffness or joint swelling today. Prior visit 01/24/2022 Suzy 86 yoM presents for follow-up of Seropos itive RA (RF++ CCP++). Last seen in October 2021. On MTX 6 tabs weekly and folic acid daily. Tolerating medications. Patient denies any joint pain, morning stiffness or joint swelling today. He states that his rheumatoid arthritis symptoms are stable. He reports that he has continued to fall intermittently over the last year. Patient reports at this point he has not been seriously injured or sought medical evaluation after falls. He continues to cook his own meals and transportation remains a barrier for care due to his eyesight and inability to drive. He is due for labs and will complete them today. He reports that he does have some help at home and has enough food to eat. In November patient was found to have elevated PTH intact, he declined referral to endocrinology. Consult was placed just in case he changed his mind and his PCP was notified. He reports that he uses Aspercreme for any generalized intermittent pain, he feels the Aspercreme works well. [facility] Medical History (Updated 08/14/23 @ 12:09 by SANTANA Mendez) T2DM (type 2 diabetes mellitus) Vitamin D deficiency GERD without esophagitis Overweight (BMI 25.0-29.9) Anxiety Diabetes mellitus Pure hypercholesterolemia Benign essential hypertension 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 USP methotrexate user Seropositive rheumatoid arthritis Surgical History History of hernia surgery Family History Father Diabetes Mother CVD (cardiovascular disease) Social History Housing: House Alcohol intake: never Patient Tobacco Use Status: Former Tobacco user Tobacco use type: Cigarette Cigarettes Per Day: 20 Years Smoked: 15 e-Cigarette/Vaping Use: Never Used Advance Directives Date on File: 10/13/22 service: No Current occupational status: unemployed Current occupational exposures/hazards: No Cognitive needs: No Hearing needs: No Vision needs: No Physical Exam Vital Signs: Last Vital Signs Pulse 104 H 09/18/23 11:02 BP 132/58 L 09/18/23 11:02 Pulse Ox 94 09/18/23 11:02 Oxygen Delivery Method Room Air 09/18/23 11:02 BMI result Body Mass Index 27.6 Assessment & Plan Assessment & Plan (1) Seropositive rheumatoid arthritis: Code(s): M05.9 - Rheumatoid arthritis with rheumatoid factor, unspecified (2) 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 Will monitor patient? for side effects with frequent lab work. Advised patient to take folic acid daily to prevent complications of methotrexate (3) T2DM (type 2 diabetes mellitus): Code(s): E11.9 - Type 2 diabetes mellitus without complications Qualifiers: Diabetes mellitus complication status: without complication Diabetes mellitus long wall mining machine tender insulin use: without long wall mining machine tender use Qualified Code(s): E11.9 - Type 2 diabetes mellitus without complications Plan #Seropositve RA (RF++ CCP++) the patient continues on MTX 6 tabs weekly and folic acid daily, tolerating both meds well.? No active hand synovitis on exam today, his findings are more consistent with chronic deformities.? The swelling and warmth to his right ankle has resolved with the prednisone. Patient denies tenderness and pain but I think this may be active RA. He will continue his methotrexate 15mg QW and continue taking folic acid 1 mg daily. If the ankle swelling returns will consider to increase MTX to 10 pills. #Long-term use: Monitoring labs are stable. Transportation was a barrier for this patient. Now that he is moved in with his neice this should no longer be an issue as she will take him to his lab work and appointments. He will follow- up in the office in 4 months with labs or sooner if needed. F/U 4 month I spent 20 minutes reviewing history, evaluating patient and documenting. 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
[2023-09-18 11:02] VITALS: BP 132/58; PULSE 104; O2SAT 94; BMI 27.6
== END 2023-09-18 11:24 | disposition home or self-care (01) ==
LOC: HO.RHE 10:45
PROVIDERS: PCP Internal Medicine; Visit Provider Nurse Practitioner Family
DX: M05.79 Rheumatoid arthritis with rheumatoid factor of multiple sites without organ or systems involvement (principal); E11.9 Type 2 diabetes mellitus without complications; Z79.631 Long term (current) use of antimetabolite agent
CPT/HCPCS: 99213

== ENCOUNTER → 2023-09-18 10:45 | Outpatient (BNVA) | payer MEDICARE, MEDICAID, SELFPAY | PROVIDERS: PCP Internal Medicine; Visit Provider Nurse Practitioner Family | DX: M05.9 Rheumatoid arthritis with rheumatoid factor, unspecified (principal); E11.9 Type 2 diabetes mellitus without complications; Z79.899 Other long term (current) drug therapy | CPT/HCPCS: 99212 ==

== ENCOUNTER 2023-11-02 09:12 | Outpatient (REF) | payer MEDICARE, MEDICAID, SELFPAY ==
[2023-11-02 09:41] LABS: MANUAL DIFF FLAG NO
[2023-11-02 10:41] LABS: Basophils Percent Auto 0.6 % (0-2); Eosinophils Absolute Auto 0.2 X10*3/uL (0.0-0.4); Eosinophils Percent Auto 3.3 % (0-4); Estimated Average Glucose 117 mg/dL; Hematocrit 35.2 % (42.0-52.0); Hemoglobin 11.8 g/dl (14.0-18.0); Hemoglobin A1c % 5.7 % (<6.0); Imm Gran Abs Auto 0.04 X10*3/uL (0.00-0.03); Imm Gran Pct Auto 0.8 % (0.0-0.4); Lymphocytes Absolute Auto 0.8 X10*3/uL (1.2-4.9); Lymphocytes Percent Auto 15.1 % (20-40); Mean Corpuscular HGB Conc 33.5 g/dl (31.0-36.0); Mean Corpuscular Hemoglobin 31.8 pg (27.0-33.0); Mean Corpuscular Volume 94.9 fL (80.0-98.0); Mean Platelet Volume 11.8 fL (9.4-12.4); Monocytes Absolute Auto 0.8 X10*3/uL (0.1-1.2); Monocytes Percent Auto 14.7 % (2-11); Neutrophils Absolute Auto 3.4 x10*3/uL (2.0-8.3); Neutrophils Percent Auto 65.5 % (45-73); Platelet Count 241 X10*3/uL (160-400); Red Blood Count 3.71 X10*6/uL (4.60-5.80); Red Cell Distribution Width 14.9 % (11.0-16.0); White Blood Count 5.2 X10*3/uL (4.8-10.8)
[2023-11-02 10:51] LABS: Appearance Urine Clear; Color Urine Yellow; Glucose Urine UA Negative (Negative); Leukocyte Esterase Urine Negative (Negative); Nitrite Urine Negative (Negative); Specific Gravity - Urine 1.025 (1.005-1.025); Urine Blood Negative (Negative); Urine Ketones Trace mg/dL (Negative); Urine Protein Negative (Neg-Trace)
[2023-11-02 11:16] LABS: Erythrocyte Sedimentation Rate 49 MM/HR (0-15)
[2023-11-02 11:21] LABS: Alanine Aminotransferase 20 U/L (0-40); Albumin Level 3.9 g/dL (3.5-5.0); Alkaline Phosphatase 70 U/L (39-117); Anion Gap 15 (12-20); Aspartate Amino Transferase 26 U/L (5-37); Bilirubin Total 0.4 mg/dL (0.0-1.0); Blood Urea Nitrogen 22 mg/dL (9-16); Calcium 9.2 mg/dL (8.4-10.2); Carbon Dioxide 27 mmol/L (22-29); Chloride 103 mmol/L (96-108); Cholesterol 140 mg/dL (<200); Estimated Glomerular Filt Rate 58; Glucose Fasting 116 mg/dL (60-99); HDL Cholesterol 35 mg/dL (>40); LDL Cholesterol Calculated 85 mg/dL (<100); Potassium 3.9 mmol/L (3.3-5.1); Sodium 141 mmol/L (135-145); Total Protein 6.9 g/dL (6.5-8.0); Triglycerides 103 mg/dL (<150)
[2023-11-02 11:21] LABS: Creatinine Urine 218.56 mg/dL; Microalbum/Creatinine Ratio Ur 6.4 ug/mg cr (<30)
[2023-11-02 11:22] LABS: TSH reflex Free T4 2.98 uIU/mL (0.32-4.0); Vitamin D 25-OH Total 40.6 ng/mL (>30)
== END 2023-11-02 09:13 | disposition home or self-care (01) ==
LOC: HO.LAB 09:12
PROVIDERS: PCP Internal Medicine; Visit Provider Internal Medicine
DX: E55.9 Vitamin D deficiency, unspecified (principal); M06.9 Rheumatoid arthritis, unspecified; D64.9 Anemia, unspecified; E78.00 Pure hypercholesterolemia, unspecified; E11.9 Type 2 diabetes mellitus without complications; R30.0 Dysuria; M79.7 Fibromyalgia
CPT/HCPCS: 36415; 80053; 80061; 81003; 82043; 82306; 82570; 83036; 84443; 85025; 85652

== ENCOUNTER 2023-11-08 10:49 | Outpatient (AMB) | payer MEDICARE, MEDICAID, SELFPAY ==
--- NOTE | 2023-11-08 10:50 | A.OFFPC_ITS ---
Vital Signs 11/08/23 10:51 Height 5 ft 10 in Weight 189 lb BMI 27.1 BP 118/74 Blood Pressure Location Lt brachial Position Sitting Pulse 110 H Pulse Source Pulse Oximeter Pulse Oximetry (%) 94 Oxygen Delivery Method Room Air Intake Visit Reasons: HTN,, hyperlipidemia, rheumatoid arthritis Intake Note: pt is here for a follow up and is also requesting a referral to commercial producer Dr. Gonzales Silk Screen Cutter Required: No Retail Shift Manager: Not Required per policy Accompanied by: Self / Same As Patient Allergies hydrocodone [From VICODIN] Allergy (Intermediate, Verified 11/08/23 11:16) Vomiting Hydrocodone-Acetaminophen Allergy (Intermediate, Uncoded 11/08/23 11:16) vomiting, dizziness Medication List - Last Reconciled 11/08/23 by Andry Quintero MD acetaminophen (Tylenol) 325 mg PO QID PRN blood sugar diagnostic (Skills MatterStyle Lite Strips) TEST BLOOD SUGAR DAILY once per day blood-glucose meter (Skills MatterStyle Lite Meter kit) As directed once per day cholecalciferol (vitamin D3) 25 mcg PO DAILY 90 days [Commode As directed] flash glucose scanning reader (Play4test Britt 14 Day Mcdonald) As directed flash glucose sensor (Skills MatterStyle Britt 14 Day Sensor kit) As directed folic acid 1 mg PO DAILY 90 days lancets (Skills MatterStyle Lancets) As directed once per day lidocaine 4% (Aspercreme (lidocaine)) 1 patch topical DAILY PRN lisinopril 5 mg PO DAILY 90 days lorazepam 0.5 mg PO DAILY 30 days metformin 500 mg PO BID methotrexate sodium 15 mg (6 x 2.5 mg) PO QWEEK omeprazole 20 mg PO DAILY simvastatin 20 mg PO BEDTIME terazosin 5 mg PO BEDTIME 90 days Tobacco use date assessed: 07/10/23 Fall risk assessment: No Falls in past year Last assessed Fall Risk: 11/08/23 Dental Screening Dental Screen Date: 07/10/23 HPI HTN,, hyperlipidemia, rheumatoid arthritis HPI Details Patient comes in today for his follow up visit He reportedly went to the ER at [facility] last week on 11/02/2023 for increasing weakness and cough His chest x-rays reportedly showed (+) LLL pneumonia and he was prescribed oral Doxycycline x 7 days and Tessalon Forte for his cough States that he will be finishing up his Abx tomorrow and that his symptoms have improved significantly with his Rx and that he currently feels okay but his niece is requesting for a referral for patient to see Dr. Gonzales at [facility] for pulmonary follow up He was finally seen by rheumatology again a couple of months ago for his RA - was continued on his Methotrexate but was prescribed oral Prednisone for a week for a mild flare up of his RA Labs done confirmed his RA, with elevated rheumatoid factor and CCP Ab, as well as elevated inflammatory markers Patient denies any fever, headaches or dizziness Denies any chest pains, no SOB No nausea/vomiting, no abdominal pain No change in bowel habits noted He needs several of his Rx refilled today He had his follow up labs done last week - to discuss his results [facility] Medical History (Updated 11/19/23 @ 04:38 by Andry Quintero MD) Anemia T2DM (type 2 diabetes mellitus) Vitamin D deficiency GERD without esophagitis Overweight (BMI 25.0-29.9) Anxiety Diabetes mellitus Pure hypercholesterolemia Benign essential hypertension 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 Seropositive rheumatoid arthritis Surgical History History of hernia surgery Family History Father Diabetes Mother CVD (cardiovascular disease) Social History Housing: House Alcohol intake: never Patient Tobacco Use Status: Former Tobacco user Tobacco use type: Cigarette Cigarettes Per Day: 20 Years Smoked: 15 e-Cigarette/Vaping Use: Never Used Advance Directives Date on File: 10/13/22 service: No Current occupational status: unemployed Current occupational exposures/hazards: No Cognitive needs: No Hearing needs: No Vision needs: No Questionnaire Thrive Questionnaire Date Thrive assessed: 07/10/23 PAYTON-7 AMB Questionnaire PAYTON-7 Date PAYTON - 7 assessed: 07/10/23 Source: Developed by Drs. Jerry Sheikh, Daxa Stafford, Tyree Silva and colleagues, with an educational mary from [employer]. Review of Systems Const Denies chills, Reports fatigue, Denies fever(s), Reports frequent falls and Denies headache(s) ENT Denies dysphagia, Denies otalgia, Denies headache(s), Denies neck pain, Denies odynophagia and Denies sore throat Card Denies chest pain, Denies palpitations and Denies dyspnea Resp Denies chest congestion, Reports cough (on and off, improving), Denies dyspnea and Denies wheezing GI Denies abdominal pain, Denies constipation, Denies dysphagia, Denies heartburn, Denies diarrhea, Denies nausea, Denies odynophagia and Denies vomiting Denies dysuria, Denies nocturia and Denies urinary frequency Musc Reports abnormal gait (unsteady), Denies back pain, Denies arthralgias (controlled on Rx) and Denies neck pain Skin/Breast Denies rash Neuro Reports abnormal gait (unsteady), Reports confusion (at times, per his niece), Reports frequent falls, Denies headache(s) and Reports memory loss Psych Denies anxiety, Reports confusion (at times, per his niece), Denies depression and Reports memory loss Endo Reports fatigue and Denies palpitations Aller/Immun Denies wheezing Physical exam (Primary Care) Vital Signs: Last Vital Signs Pulse 110 H 11/08/23 10:51 BP 118/74 11/08/23 10:51 Pulse Ox 94 11/08/23 10:51 Oxygen Delivery Method Room Air 11/08/23 10:51 BMI result Body Mass Index 27.1 Tobacco/Smoking Status: Tobacco use Status Tobacco use date assessed 07/10/23 11/08/23 10:53 Patient Tobacco Use Status Former Tobacco user 11/08/23 10:53 Tobacco use type Cigarette 11/08/23 10:53 e-Cigarette/Vaping Use Never Used 11/08/23 10:53 Thrive Assessment: Date of Thrive Assessment Date Thrive assessed 07/10/23 11/08/23 10:53 Const General: confusion (at times, per his niece) Orientation/consciousness: confusion (at times, per his niece) HENMT Ears: TM's normal bilaterally and EAC's normal Throat: Yes posterior oropharynx normal and Yes tonsils normal (no TP congestion) Neck Neck: Yes no lymphadenopathy and Yes supple Thyroid: Thyroid normal Resp Auscultation: clear to auscultation bilaterally, no crackles, no rales and no wheezes Cardio Rate: regular rate Rhythm: regular rhythm Heart sounds: no murmurs GI Palpation (GI): Soft to palpation and nontender Auscultation: normal bowel sounds General: Yes no CVA tenderness Back/Spine/Pelvis Back: no CVA tenderness Thoracic/Lumbar Spine: kyphosis (mild) and No lumbar spinal tenderness Skin Rashes: no rashes Neuro General: confusion (at times, per his niece) Extrem Other: (+) rheumatoid nodules noted on a few fingers on both hands General: Yes full ROM, No clubbing, No cyanosis and Yes pedal edema (trace, bilateral) Results Reviewed Results Reviewed: Laboratory Tests 08/08/23 08/14/23 11/02/23 12:57 11:40 09:30 WBC Hgb Hct Plt Count ESR Sodium Potassium Creatinine Estimated GFR Fasting Glucose Hemoglobin A1c % Calcium Total Bilirubin AST ALT C-Reactive Protein 1.72 H Total Protein Triglycerides LDL Cholesterol, Calc HDL Cholesterol TSH Ur Specific [place] 1.025 Urine Protein Negative Urine Glucose (UA) Negative Urine Blood Negative Urine Nitrite Negative Ur Leukocyte Esterase Negative Microalb/Creat Ratio 6.4 Rheumatoid Factor 551.8 H Cycl Citrul Peptide IgG >250 H HE Screen NEGATIVE 11/02/23 09:38 WBC 5.2 Hgb 11.8 L Hct 35.2 L Plt Count 241 ESR 49 H Sodium 141 Potassium 3.9 Creatinine 1.19 Estimated GFR 58 Fasting Glucose 116 H Hemoglobin A1c % 5.7 Calcium 9.2 Total Bilirubin 0.4 AST 26 ALT 20 C-Reactive Protein Total Protein 6.9 Triglycerides 103 LDL Cholesterol, Calc 85 HDL Cholesterol 35 L TSH 2.98 Ur Specific [place] Urine Protein Urine Glucose (UA) Urine Blood Urine Nitrite Ur Leukocyte Esterase Microalb/Creat Ratio Rheumatoid Factor Cycl Citrul Peptide IgG HE Screen Assessment and Plan Assessment & Plan (1) Pneumonia: Code(s): J18.9 - Pneumonia, unspecified organism Qualifiers: Pneumonia type: due to unspecified organism Laterality: left Lung location: lower lobe of lung Qualified Code(s): J18.9 - Pneumonia, unspecified organism Plan: Resolving - he is currently finishing up his Abx Rx and has one more day of Tx left Per request, he is referred to Dr. Roland Gonzales at [facility] for pulmonary follow up (2) Rheumatoid arthritis: Code(s): M06.9 - Rheumatoid arthritis, unspecified Qualifiers: Rheumatoid arthritis location: unspecified site Rheumatoid factor presence: with rheumatoid factor Qualified Code(s): M05.9 - Rheumatoid arthritis with rheumatoid factor, unspecified Plan: Patient currently remains on Methotrexate 2.5 mg 6 tablets (15 mg) once a week and Folic Acid 1 mg QD He is currently following up again with [facility] Rheumatology (was lost to follow up from 2021 until earlier this year) Patient continues to take Acetaminophen PRN for his joint pains and reports that he is doing well on his current regimen (3) Benign essential hypertension: Code(s): I10 - Essential (primary) hypertension Plan: Reinforced low sodium diet - goal is systolic BP of at least 130 to 140 mm or less Continue Lisinopril 5 mg QD (4) Diabetes mellitus: Code(s): E11.9 - Type 2 diabetes mellitus without complications Qualifiers: Diabetes mellitus type: type 2 Diabetes mellitus intermodal customer service insulin use: without intermodal customer service use Diabetes mellitus complication status: without complication Qualified Code(s): E11.9 - Type 2 diabetes mellitus without complications Plan: His HgbA1c was at 5.7% on his labs done last week (in-office HgbA1c was at 5.8% back in March 2023) - goal is at least <7.0% but ideally <6.5% Reinforced diabetic diet Continue Metformin 500 mg BID (5) Pure hypercholesterolemia: Code(s): E78.00 - Pure hypercholesterolemia, unspecified Plan: Results of his labs done last week reviewed and discussed with patient Reinforced low cholesterol diet Continue Simvastatin 20 mg QD Will recheck his labs and fasting lipids in 4 months for follow up (6) GERD without esophagitis: Code(s): K21.9 - Gastro-esophageal reflux disease without esophagitis Plan: Dietary restrictions reinforced Continue Omeprazole 20 mg QD (7) Vitamin D deficiency: Code(s): E55.9 - Vitamin D deficiency, unspecified Plan: Corrected - continue Vitamin D3 1000 units QD (8) Anemia: Code(s): D64.9 - Anemia, unspecified Qualifiers: Anemia type: unspecified type Qualified Code(s): D64.9 - Anemia, unspecified Plan: Patient's H/H has been noted to be slightly low on his labs done this year; these were normal in the past His RBC indices appear to be normal on his recent labs Will send him for some additional labs for further evaluation of his recent anemia - these can be done together with his follow up labs in a few months (9) Elevated parathyroid hormone: Code(s): R79.89 - Other specified abnormal findings of blood chemistry Plan: His intact PTH level was elevated when last checked in November 2021 - patient declined referral to endocrinology at the time His Vitamin D level was intact and his serum calcium level was normal on his recent labs Will recheck his intact PTH level in a few months for follow up (10) BPH (benign prostatic hyperplasia): Code(s): N40.0 - Benign prostatic hyperplasia without lower urinary tract symptoms Qualifiers: Lower urinary tract symptom presence: symptoms present Lower urinary tract symptom detail: urinary frequency Qualified Code(s): N40.1 - Benign prostatic hyperplasia with lower urinary tract symptoms; R35.0 - Frequency of micturition Plan: Continue Terazosin 5 mg Q HS Follow up with urology as scheduled (11) Cognitive impairment: Code(s): R41.89 - Other symptoms and signs involving cognitive functions and awareness Plan: He has been previously referred to neurology for further evaluation but patient has refused to see Dr. Dove He is advised to call the neurology office to reschedule his appt with an alternate doctor (12) Anxiety: Code(s): F41.9 - Anxiety disorder, unspecified Plan: Continue Lorazepam 0.5 mg QD PRN (13) Overweight (BMI 25.0-29.9): Code(s): E66.3 - Overweight Plan: Reinforced diet; exercise and weight loss are impractical nor realistic at this point, given patient's declining cognition and also his unsteady gain/frequent falls lately Plan Follow up in 4 months Orders: Orders Lipid Panel 4 Months E78.00 - Pure hypercholesterolemia, unspecified Comprehensive [place]. Panel Fast 4 Months E78.00 - Pure hypercholesterolemia, unspecified Hemoglobin A1c 4 Months E11.9 - Type 2 diabetes mellitus without complications Complete Blood Count Auto Diff 4 Months D64.9 - Anemia, unspecified Referrals Pulmonology Referral J18.9 - Pneumonia, unspecified organism Medications: Refilled lisinopril 5 mg PO DAILY 90 tabs 1RF 90 days M05.9 - Rheumatoid arthritis with rheumatoid factor, unspecified metformin 500 mg PO BID 180 tabs 1RF terazosin 5 mg PO BEDTIME 90 caps 0RF 90 days N40.1 - Benign prostatic hyperplasia with lower urinary tract symptoms, R35.0 - Frequency of micturition simvastatin 20 mg PO BEDTIME 90 tabs 1RF cholecalciferol (vitamin D3) 25 mcg PO DAILY 90 tabs 3RF 90 days folic acid 1 mg PO DAILY 90 tabs 3RF 90 days omeprazole 20 mg PO DAILY 90 caps 1RF Coding Level of Care Code Est Pt Level 4 (68976) Complex EM visit Add On G2211 Diagnoses Pneumonia of left lower lobe due to infectious organism J18.9 Pneumonia type: due to unspecified organism Laterality: left Lung location: lower lobe of lung Rheumatoid arthritis with positive rheumatoid factor, involving unspecified site M05.9 Rheumatoid arthritis location: unspecified site Rheumatoid factor presence: with rheumatoid factor Benign essential hypertension I10 Type 2 diabetes mellitus without complication, without long-term current use of insulin E11.9 Diabetes mellitus type: type 2 Diabetes mellitus skilled nursing insulin use: without intermodal customer service use Diabetes mellitus complication status: without complication Pure hypercholesterolemia E78.00 GERD without esophagitis K21.9 Vitamin D deficiency E55.9 Anemia, unspecified type D64.9 Anemia type: unspecified type Elevated parathyroid hormone R79.89 Benign prostatic hyperplasia with urinary frequency N40.1; R35.0 Lower urinary tract symptom presence: symptoms present Lower urinary tract symptom detail: urinary frequency Cognitive impairment R41.89 Anxiety F41.9 Overweight (BMI 25.0-29.9) E66.3
[2023-11-08 10:51] VITALS: BP 118/74; PULSE 110; O2SAT 94; BMI 27.1
== END 2023-11-08 11:30 | disposition home or self-care (01) ==
PROVIDERS: PCP Internal Medicine; Visit Provider Internal Medicine
DX: J18.9 Pneumonia, unspecified organism (principal); M05.9 Rheumatoid arthritis with rheumatoid factor, unspecified; I10 Essential (primary) hypertension; E11.9 Type 2 diabetes mellitus without complications; E78.00 Pure hypercholesterolemia, unspecified; K21.9 Gastro-esophageal reflux disease without esophagitis; E55.9 Vitamin D deficiency, unspecified; D64.9 Anemia, unspecified; R79.89 Other specified abnormal findings of blood chemistry; N40.1 Benign prostatic hyperplasia with lower urinary tract symptoms; R35.0 Frequency of micturition; R41.89 Other symptoms and signs involving cognitive functions and awareness
CPT/HCPCS: 99214; G2211

== ENCOUNTER 2023-12-07 11:50 | Outpatient (REF) | payer MEDICARE, MEDICAID, SELFPAY ==
[2023-12-07 12:08] LABS: MANUAL DIFF FLAG NO
[2023-12-07 12:15] LABS: Basophils Absolute Auto 0.1 X10*3/uL (0.0-0.2); Basophils Percent Auto 0.6 % (0-2); Eosinophils Absolute Auto 0.3 X10*3/uL (0.0-0.4); Eosinophils Percent Auto 2.3 % (0-4); Hemoglobin 12.8 g/dl (14.0-18.0); Imm Gran Abs Auto 0.04 X10*3/uL (0.00-0.03); Imm Gran Pct Auto 0.4 % (0.0-0.4); Lymphocytes Percent Auto 8.8 % (20-40); Mean Corpuscular HGB Conc 33.7 g/dl (31.0-36.0); Mean Corpuscular Hemoglobin 32.6 pg (27.0-33.0); Mean Corpuscular Volume 96.7 fL (80.0-98.0); Mean Platelet Volume 11.4 fL (9.4-12.4); Monocytes Absolute Auto 0.6 X10*3/uL (0.1-1.2); Monocytes Percent Auto 5.5 % (2-11); Neutrophils Percent Auto 82.4 % (45-73); Platelet Count 202 X10*3/uL (160-400); Red Blood Count 3.93 X10*6/uL (4.60-5.80); Red Cell Distribution Width 14.1 % (11.0-16.0); White Blood Count 10.9 X10*3/uL (4.8-10.8)
[2023-12-07 12:59] LABS: Erythrocyte Sedimentation Rate 20 MM/HR (0-15)
[2023-12-07 13:01] LABS: Alanine Aminotransferase 10 U/L (0-40); Alkaline Phosphatase 73 U/L (39-117); Anion Gap 13 (12-20); Aspartate Amino Transferase 16 U/L (5-37); Bilirubin Total 0.3 mg/dL (0.0-1.0); Blood Urea Nitrogen 21 mg/dL (9-16); C Reactive Protein 0.55 mg/dL (< or = 0.50); Calcium 9.8 mg/dL (8.4-10.2); Carbon Dioxide 28 mmol/L (22-29); Chloride 105 mmol/L (96-108); Estimated Glomerular Filt Rate 59; Glucose Random 118 mg/dL (60-115); Potassium 4.3 mmol/L (3.3-5.1); Sodium 142 mmol/L (135-145); Total Protein 7.1 g/dL (6.5-8.0)
== END 2023-12-07 11:51 | disposition home or self-care (01) ==
LOC: HO.LAB 11:50
PROVIDERS: PCP Internal Medicine; Visit Provider Nurse Practitioner Family
DX: M05.9 Rheumatoid arthritis with rheumatoid factor, unspecified (principal); Z79.899 Other long term (current) drug therapy
CPT/HCPCS: 36415; 80053; 82550; 85025; 85652; 86140

== ENCOUNTER 2023-12-28 12:21 | Outpatient (REF) | payer MEDICARE, MEDICAID, SELFPAY ==
--- NOTE | 2023-12-31 13:36 | MHC.AU.MED ---
Medical Clearance for Hearing Instrumentation Date: 12/31/23 Patient Name: Flex Correia Date of : 1935 Referring Provider: Andry Quintero MD We have seen your patient on 12/31/23 and have determined that they are a candidate for amplification (See accompanying report). Specifically, they would benefit from: Hearing aid use in both ears There is a statute that addresses Medical Evaluation Requirements prior to fitting a patient with a hearing aid. According to [place] statute 265 CMR:6.03(1), (a) General. Except as provided in 265 CMR 6.03(1)(b), a wool shearing supervisor shall not sell a hearing aid unless the prospective user has presented to the wool shearing supervisor a written statement signed by a licensed physician that states that the patient's hearing loss has been medically evaluated and the patient may be considered a candidate for a hearing aid. The medical evaluation must have taken place within the preceding six months. Please note: Due to the [place] Statute referenced above, we cannot accept a signature other than that of a licensed physician. SCREW REMOVER and PA signatures cannot be accepted. I am in agreement with the above recommendation. There is no medical contraindication for hearing instrumentation. Physician Signature Date Physician Name (Printed)
== END 2023-12-28 12:22 | disposition home or self-care (01) ==
LOC: HO.SH 12:21
PROVIDERS: Visit Provider Internal Medicine
DX: Z01.118 Encounter for examination of ears and hearing with other abnormal findings (principal); Z46.1 Encounter for fitting and adjustment of hearing aid; H90.6 Mixed conductive and sensorineural hearing loss, bilateral
CPT/HCPCS: 92557; 92567; 92591; V5275

== ENCOUNTER 2024-01-28 14:00 | Outpatient (REF) | payer MEDICARE, MEDICAID, SELFPAY | END 2024-01-28 14:01 | disposition home or self-care (01) | LOC: HO.HAP 14:00 | PROVIDERS: Visit Provider Internal Medicine | DX: Z46.1 Encounter for fitting and adjustment of hearing aid (principal); H90.6 Mixed conductive and sensorineural hearing loss, bilateral | CPT/HCPCS: V5011; V5020; V5160; V5260 ==